=== PATIENT | female | born 1945 | race Caucasian/White ===

== ENCOUNTER 2017-05-22 16:22 | Inpatient (IN) | payer BC, OTHER ==
[~2017-05-22] VITALS: Ht 160 cm; Wt 82.0 kg
[~2017-05-22 16:22] MED LIST: ACET-1311 PO; ALUMSUS2 PO; AMB5 PO; ASPEC325 PO; CLC100 PO; CRS10 PO; LEVO-217 PO; LISI20TA3 PO; OXYSR10 PO; PANT40TA PO; PRD75 PO
[2017-05-22 20:00] VITALS: BP 162/70; PULSE 72; TEMP 36.7; O2SAT 93; Ht 160 cm; Wt 82.0 kg
[2017-05-22] MEDS ORDERED: NURSING VERBAL MED ORDER ONE ×2 (20:00→23:00)
[2017-05-22] MEDS ORDERED: LACTATED RINGER'S 1000ML 1,000 ML IV SCH (20:15)
[2017-05-22] MEDS ORDERED: AMLO-110 PO ×3 (20:20→20:31)
[2017-05-22] MEDS ORDERED: CHOL2000 PO (20:32)
[2017-05-22] MEDS ORDERED: ROSU5TAB PO (20:46)
[2017-05-22] MEDS ORDERED: APIX1TAB3 PO (20:47)
[2017-05-22] MEDS ORDERED: ASPI81TA28 PO (20:48)
[2017-05-22] MEDS ORDERED: ACET-1311 PO (20:49)
[2017-05-22] MEDS ORDERED: SITA50TA3 PO (20:50)
[2017-05-22] MEDS ORDERED: COEN100C11 PO (20:51)
[2017-05-22] MEDS ORDERED: LSN20 PO (20:54)
--- NOTE | 2017-05-22 21:29 | DIAGNOSTIC IMAGING REPORT ---
CHEST 2 VIEWS ROUTINE CLINICAL HISTORY: Preoperative chest COMPARISON STUDY: 09/28/2010 FINDINGS: The heart is enlarged. There is a left subclavian dual-chamber central venous pacemaker. There is no failure. There is no focal pulmonary consolidation. There are no pleural effusions. There is a left scapular deformity similar to the prior study.[ IMPRESSION: Cardiomegaly. No acute findings. Electronically signed by: Joaquín Huddleston M.D. 05/22/2017 9:28 PM Dictated Date/Time: 05/22/2017 9:27 PM
[2017-05-22 23:20] VITALS: BP 119/72; PULSE 70; TEMP 37.2; O2SAT 92
[2017-05-23] VITALS (8 sets, daily range): BP systolic 113–138; BP diastolic 67–84; PULSE 70–73; TEMP 36.4–37.1; O2SAT 91–96
[2017-05-23 07:46] LABS: HEMATOCRIT 34.4 % (37-47); HEMOGLOBIN 11.6 g/dL (12.0-16.0); MEAN CELL VOLUME 93.2 fL (80-100); MEAN CORPUSCULAR HEMOGLOBIN 31.4 pg (25-34); MEAN CORPUSCULAR HGB CONC 33.7 g/dl (32-36); PLATELET COUNT 146 K/uL (130-400); RED CELL DISTRIBUTION WIDTH SD 43.5 fL (36.4-46.3); WHITE BLOOD COUNT 11.03 K/uL (4.8-10.8)
--- NOTE | 2017-05-23 08:06 | HISTORY & PHYSICAL EXAMINATION ---
DATE OF ADMISSION: 05/23/2017 CHIEF COMPLAINT: Pain in the left knee. HISTORY OF PRESENT ILLNESS: The patient is a 71-year-old white female known to our practice who is status post bilateral total knee in [address] Solorio. The patient states that on she began feeling poorly and continued to feel poorly through the weekend. She states that soon her left knee began to swell and become painful and she apparently difficulty with ambulating on the left lower extremity. She states she did have fevers and chills off and on and was overall feeling poorly. She went to the [facility] and was seen by the staff there. The knee was aspirated and just recently nursing staff showed that reports from [facility] showing Gram stain of gram positive cocci. Dr. Solorio was contacted while she was in the Emergency Room and had her transferred to [facility] for further care. 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 PAST SURGICAL HISTORY: Bilateral total knee arthroplasty in 2010, pacemaker implantation, which she states was in 2008 and now states that she is due for a battery change very soon, above noted stent placement in the past due to her CAD, history of hysterectomy and cholecystectomy. FAMILY HISTORY: Noncontributory at this time. SOCIAL HISTORY: The patient is a nonsmoker who does not drink alcohol and is . MEDICATIONS: Tylenol 650 mg p.o. p.r.n., Maalox 15 mL p.o. q. 4 hours p.r.n., amlodipine 5 mg p.o. daily, Eliquis 10 mg p.o. b.i.d. which she states she has not taken since this past , aspirin 81 mg p.o. daily, vitamin D3 2000 units 1 cap p.o. daily, CoQ10 1 cap p.o. daily 100 mg, levothyroxine 0.05 mg p.o. daily, lisinopril 20 mg p.o. daily, Crestor 5 mg p.o. daily and Januvia 50 mg p.o. daily. ALLERGIES: SHRIMP AND XARELTO WHICH SHE STATES CAUSED A RASH OF SOME SORT OF ON HER ARMS. REVIEW OF SYSTEMS: Positive for recent fevers and chills. She denies any night sweats. No unexplained weight loss or weight gain. No increased cough or sputum production. She states that she is somewhat short winded with activity but states that her activity is minimal at best anyways. No recent chest pain or chest pressure. History of atrial fibrillation. No history of hemoptysis. No history of abdominal pain. No unusual nausea, vomiting or diarrhea, although she states that some of her medications do give her diarrhea off and on. No hematemesis, melena, hematochezia. No history of peptic ulcer disease. No recent hematuria, pyuria, dysuria or renal calculi. As noted above, the patient has had a hysterectomy in the past, history of CVA in approximately 2009 with some residual slight right-sided weakness. No history of migraine headaches or seizure disorder. PHYSICAL EXAMINATION: GENERAL: The patient is a well-developed, well-nourished white female who is alert and oriented x3 and in no acute distress, pleasant and cooperative. SKIN: Warm and dry. Turgor is good. HEENT: Head is normocephalic and atraumatic. There is no scleral icterus or injection. Nasal airway is patent. Oral mucosa is pink and moist. NECK: Supple. HEART: Regular rate and rhythm. LUNGS: Clear to auscultation without rales, rhonchi or wheezes. ABDOMEN: Soft, round and nontender. Bowel sounds are present x4. GENITALIA AND RECTAL: Not performed at this time. EXTREMITIES: On examination of her left knee, has moderate effusion compared to the right. The knee itself it is warm and hot to the touch compared to the right. She is tender on palpation over the knee at this time. She is able to fully extend the knee and she is able to bend the knee to approximately 60 degrees before the pain is too much for her to move. Otherwise left lower extremity is benign. Right lower extremity is benign at this time and has good range of motion. Two scars are noted from the knees from previous TKA. Calves are soft, nontender. Upper extremities are essentially within normal limits and have good range of motion bilaterally. Distal pulses are equal bilaterally of the upper and lower extremities. There is no gross motor or sensory deficit seen at this time. ASSESSMENT: Infected left total knee arthroplasty. PLAN: Dr. Solorio has been in to speak to the patient and after examining and receiving word from [facility] that she has gram positive cocci in the aspirate that was done there, plans will be for open irrigation and debridement and polyethylene bearing change today. The patient states that she has not taken her Eliquis since and that she is due for a battery change on her pacemaker. We will consult medicine service and if needed cardiology, but plan for the above noted irrigation and debridement today unless medicine service does not clear her.
[2017-05-23 08:15] LABS: CREATININE 0.86 mg/dl (0.60-1.20); POTASSIUM 3.8 mmol/L (3.5-5.1)
--- NOTE | 2017-05-23 09:45 | History & Physical Bridge Note ---
H&P Re-Evaluation Bridge Note: I have examined the patient, reviewed the History & Physical and in the interval since the performance of the History & Physical I have noted the following changes of clinical significance: No changes noted
--- NOTE | 2017-05-23 10:45 | DIAGNOSTIC IMAGING REPORT ---
LEFT KNEE 2 VIEWS HISTORY: r/o loosening of components COMPARISON: Left knee 05/22/2017. FINDINGS: There is no fracture or dislocation. Moderate knee effusion. Left total knee arthroplasty. The hardware is intact. No significant periprosthetic lucency to suggest loosening. IMPRESSION: 1. Moderate left knee effusion. 2. Left total knee arthroplasty. No significant periprosthetic lucency. Electronically signed by: Brennan Locke M.D. 05/23/2017 10:44 AM Dictated Date/Time: 05/23/2017 10:43 AM
[2017-05-23] MEDS ORDERED: HydrALAZINE HCL 20 MG/ML VIAL IV PRN (11:15)
--- NOTE | 2017-05-23 11:40 | Medical Consult ---
Consultation Date of Consultation: May 23, 2017. Attending Physician: Edgar Solorio D.O. Reason for Consultation: Infected left TKA with History of Present Illness 71-year-old female with history of diabetes mellitus, atrial fibrillation, coronary artery disease, hypothyroidism, and hyperlipidemia underwent bilateral knee replacements in 2010. She reports that she did well without knee problems until approximately 4-5 days prior to admission when she began to note fatigue, fever and chills, then progressively worsening pain and swelling of her left knee. She found it difficult to ambulate because of the pain. She was seen at [facility] emergency room where she had aspiration of the knee and fluid showed evidence of infection and Gram stain reportedly showed gram- positive cocci. She was transferred here for further management. She now is awaiting operative debridement and potential poly exchange later today. She denies any recent skin or soft tissue infections. Pain currently 3 to 4/10 in intensity. Past Medical/Surgical History PAST MEDICAL HISTORY: Atrial fibrillation, CAD with stent placement in the past, history of ablation, cerebrovascular event with right-sided weakness that has improved over time in 2009, hypothyroidism, hypercholesterolemia, diabetes mellitus type 2. PAST SURGICAL HISTORY: Bilateral total knee arthroplasty in 2010, pacemaker implantation, which she states was in 2008 and now states that she is due for a battery change very soon, above noted stent placement in the past due to her CAD, history of hysterectomy and cholecystectomy. Family History Noncontributory Social History Smoking Status: Never Smoker Allergies Coded Allergies: Shrimp (Unverified Allergy, Unknown, VOMIT, 09/28/10) Current Inpatient Medications Current Inpatient Medications Medications (Trade) Dose Ordered Sig/Demetrius Route Start Time Stop Time Status Last Admin Dose Admin Lactated Ringer's 1,000 ml @ 15 mls/hr Q24H IV 05/22/17 20:15 06/21/17 20:14 05/22/17 21:40 15 MLS/HR Insulin Aspart (novoLOG ASPART) SLIDING SCALE PARAMETER ACHS SC 05/23/17 12:00 06/22/17 11:59 UNV Hydralazine HCl (HydrALAZINE INJ) 10 mg Q4H PRN IV 05/23/17 11:15 06/22/17 11:14 UNV Levothyroxine Sodium (Synthroid Tab) 50 mcg DAILY PO 05/24/17 09:00 2/16/18 08:59 UNV Review of Systems All systems were reviewed and are negative except as per HPI Physical Exam Date Time Temp Pulse Resp B/P (MAP) Pulse Ox O2 Delivery O2 Flow Rate FiO2 05/23/17 07:43 37.0 72 18 126/81 (96) 93 Room Air 05/23/17 07:40 Room Air 05/22/17 23:35 Room Air 05/22/17 23:20 37.2 70 20 119/72 (88) 92 Room Air 05/22/17 20:00 36.7 72 22 162/70 (100) 93 Room Air 05/22/17 20:00 36.7 72 22 162/70 93 Room Air General Appearance: WD/WN, no apparent distress Head: normocephalic, atraumatic Eyes: normal inspection, EOMI, sclerae normal ENT: normal ENT inspection, hearing grossly normal, pharynx normal Neck: supple, no adenopathy, thyroid normal, trachea midline Respiratory/Chest: chest non-tender, lungs clear, normal breath sounds, no respiratory distress Cardiovascular: no gallop, no murmur, + irregularly irregular Abdomen/GI: normal bowel sounds, non tender, soft, no organomegaly Back: normal inspection, no CVA tenderness Extremities/Musculoskelatal: no calf tenderness, normal capillary refill, + pertinent finding (Left knee swollen, warm, and tender) Neurologic/Psych: alert, normal mood/affect, oriented x 3 Skin: normal color, warm/dry, no rash, + pertinent finding (Left knee with overlying ecchymosis) Lymphatic: no adenopathy Laboratory Results Last 24 Hours Test 05/22/17 20:15 05/22/17 21:12 05/23/17 00:21 05/23/17 05:52 Erythrocyte Sedimentation Rate 66 mm/hr C-Reactive Protein 20.80 mg/dl Bedside Glucose 180 mg/dl 210 mg/dl 174 mg/dl Test 05/23/17 07:02 05/23/17 07:31 White Blood Count 11.03 K/uL Red Blood Count 3.69 M/uL Hemoglobin 11.6 g/dL Hematocrit 34.4 % Mean Corpuscular Volume 93.2 fL Mean Corpuscular Hemoglobin 31.4 pg Mean Corpuscular Hemoglobin Concent 33.7 g/dl RDW Standard Deviation 43.5 fL RDW Coefficient of Variation 13.0 % Platelet Count 146 K/uL Mean Platelet Volume 10.0 fL Prothrombin Time 10.8 SECONDS Prothromb Time International Ratio 1.0 Sodium Level 138 mmol/L Potassium Level 3.8 mmol/L Chloride Level 106 mmol/L Carbon Dioxide Level 21 mmol/L Anion Gap 11.0 mmol/L Blood Urea Nitrogen 30 mg/dl Creatinine 0.86 mg/dl Est Creatinine Clear Calc Drug Dose 59.1 ml/min Estimated GFR () 77.7 Estimated GFR (Non- 67.0 BUN/Creatinine Ratio 34.4 Random Glucose 190 mg/dl Calcium Level 9.0 mg/dl Patient Name: JUAN J DURAN Unit Number: [id number] Dictated: 05/23/171042 Transcribed: 05/23/171042 [facility] Printed Date/Time: [~ rep prt dt]/[~ rep prt tm] [~ rep ct labl] - [~ rep ct ivnm] [facility] [address] [place] [address] Dictated: 05/23/171042 Transcribed: 05/23/171042 [facility] Printed Date/Time: [~ rep prt dt]/[~ rep prt tm] [~ rep ct labl] - [~ rep ct ivnm] [~ rep ct add3]] LEFT KNEE 2 VIEWS HISTORY: r/o loosening of components COMPARISON: Left knee 05/22/2017. FINDINGS: There is no fracture or dislocation. Moderate knee effusion. Left total knee arthroplasty. The hardware is intact. No significant periprosthetic lucency to suggest loosening. IMPRESSION: 1. Moderate left knee effusion. 2. Left total knee arthroplasty. No significant periprosthetic lucency. Electronically signed by: Brennan Locke M.D. 05/23/2017 10:44 AM Dictated Date/Time: 05/23/2017 10:43 AM The status of this report is Signed. Draft = Not yet reviewed or approved by Radiologist. Signed = Reviewed and approved by Radiologist. <AttendingPhy>Edgar Solorio D.O.</AttendingPhy> <FamilyPhy>Baldev Liu M.D.</FamilyPhy> <PrimaryPhy>Baldev Liu M.D.</PrimaryPhy> <UnitNumber> [id number]</UnitNumber> <VisitNumber>[id number]</VisitNumber> <PatientName> JUAN J DURAN</PatientName> <DateOfBirth>1945</DateOfBirth> <Location>W< /Location> <ServiceDate></ServiceDate> <MNE>ESINDI</MNE> <OrderingPhy>Deo Kyle E PAC</OrderingPhy> <OrderingPhyMNE>f rep ord dr lomax</OrderingPhyMNE> < DictatingPhyMNE>f rep dict dr lomax</DictatingPhyMNE> <CCListMNE>f rep ct monie</ CCListMNE> <AdmittingPhyMNE>f pt admit dr lomax</AdmittingPhyMNE> <AttendingPhyMNE >f pt attend dr lomax</AttendingPhyMNE> <ConsultingPhyMNE>f pt consult dr lomax</ConsultingPhyMNE> <FamilyPhyMNE>f pt fam dr lomax</FamilyPhyMNE> <OtherPhyMNE>f pt other dr lomax</OtherPhyMNE> < PrimaryPhyMNE>f pt prim care dr lomax</PrimaryPhyMNE> <ReferringPhyMNE>f pt referring dr lomax</ReferringPhyMNE> Assessment & Plan Late infection of left TKA with cultures positive for gram-positive cocci. Patient for OR later today for debridement and poly exchange, would treat with vancomycin pending further culture results. Will likely need 6 weeks of IV antibiotics followed by lifelong suppressive antibiotics. Will adjust therapy once culture results are available. Will follow.
[2017-05-23] MEDS ORDERED: DEXTROSE 50% 50 ML SYR IV PRN (12:30)
[2017-05-23] MEDS ORDERED: GLUCAGON FOR INJ 1 MG VIAL SQ PRN (12:30)
[2017-05-23] MEDS ORDERED: GLUCOSE 40% GEL 15 GM TUBE PO PRN (12:30)
[2017-05-23] MEDS ORDERED: GLUCOSE 10 TABS/TUBE PO PRN (12:30)
[2017-05-23] MEDS: INSULIN ASPART 100 UNITS/ML 3 ML PEN SC SCH ×3 (13:05→21:21)
[2017-05-23] MEDS ORDERED: MIDAZOLAM HCL 1 MG/ML 2ML VIAL ONE (13:48)
[2017-05-23] MEDS ORDERED: FENTANYL CITRATE INJ 50 MCG/1 ML 2 ML VIAL ONE ×4 (13:49→15:51)
--- NOTE | 2017-05-23 13:51 | Medical Student: [facility] ---
Med Student History & Physical Date & Time of Service: May 23, 2017 at 13:21 Chief Complaint: Left Knee Effusion, Possible Sx Primary Care Physician: Baldev Liu M.D. History of Present Illness Source: patient 71 year old female with onset of fever/chills and left knee pain 6 days ago and worsening over the weekend s/p bilateral knee [place] [address] Solorio. Ambulation became increasing difficult secondary to pain and swelling. She presented to the [facility] ER and the joint fluid came back positive for gram positive cocci. She was transported to [facility] at the request of Dr. Solorio. He requested medical clearance for surgical irrigation and debridement. The patient denies any recent injury, infection, or sickness and there is no nidus for infection at this time. She has an extensive medical history including previous SC with stent and pacemaker in 1999, atrial fibrillation, CAD, type 2 DM, hypothyroidism, and CVA in 2009 resulting in right -sided weakness. Surgical history includes cholecystectomy an hysterectomy. She does not smoke, drink, and lives with her . Notably, she has an allergy with rash from Xarelto. Family History Father: no pertinent history Mother: no pertinent history Social History Smoking Status: Never Smoker Alcohol Use: none Drug Use: none Marital Status: Housing status: lives with family Immunizations History of Influenza Vaccine: Yes History of Tetanus Vaccine?: No History of Pneumococcal: Yes History of Hepatitis B Vaccine: No Allergies Coded Allergies: Shrimp (Unverified Allergy, Unknown, VOMIT, 09/28/10) Medications Acetaminophen (Tylenol), 650 MG PO for Pain Aluminum/Magnesium/Simeth (Maalox Max Susp), 15 ML PO Q4H PRN Amlodipine (Norvasc), 5 MG PO DAILY Apixaban (Eliquis), 10 MG PO BID Aspirin (Aspirin Ec), 81 MG PO DAILY Cholecalciferol (Vitamin D3), 1 CAP PO DAILY Coenzyme Q10 (Ubidecarenone) (Coq-10), 1 CAP PO DAILY Levothyroxine (Levothroid), 0.05 MG PO DAILY Lisinopril (Prinivil), 20 MG PO DAILY Lisinopril (Lisinopril), 1 TAB PO DAILY Rosuvastatin Calcium (Crestor *), 5 MG PO 3XWK Rosuvastatin Calcium (Crestor), 5 MG PO 4XWK Sitagliptin (Januvia), 50 MG PO DAILY Review of Systems Constitutional: + fever, + chills Respiratory: No cough, No shortness of breath Cardiovascular: No chest pain Abdomen: No pain, No nausea, No vomiting, No diarrhea Musculoskeletal: + joint pain, + swelling, No calf pain Genitourinary - Female: No dysuria Endocrine: No fatigue Hematologic / Lymphatic: No abnormal bleeding/bruising Integumentary: No rash Allergic / Immunologic: No frequent infections Physical Exam Vital Signs (24 Hours) Date Time Temp Pulse Resp B/P (MAP) Pulse Ox O2 Delivery O2 Flow Rate FiO2 05/23/17 13:03 37.1 73 16 113/67 (82) 91 Room Air 05/23/17 07:43 37.0 72 18 126/81 (96) 93 Room Air 05/23/17 07:40 Room Air 05/22/17 23:35 Room Air 05/22/17 23:20 37.2 70 20 119/72 (88) 92 Room Air 05/22/17 20:00 36.7 72 22 162/70 (100) 93 Room Air 05/22/17 20:00 36.7 72 22 162/70 93 Room Air General Appearance: WD/WN, no apparent distress Head: normocephalic, atraumatic Eyes: EOMI ENT: hearing grossly normal Neck: supple, no adenopathy Respiratory/Chest: lungs clear, normal breath sounds, no respiratory distress, no accessory muscle use Cardiovascular: regular rate, rhythm, no JVD, no murmur Abdomen/GI: normal bowel sounds, non tender, soft Extremities/Musculoskelatal: normal capillary refill, + swelling, + pertinent finding (knee effusion, unable to flex past 50-60 degrees, able to extand, warm) Neurologic/Psych: alert, normal mood/affect, oriented x 3 Skin: normal color, warm/dry, no rash Diagnostics Laboratory Results Results Past 24 Hours Test 05/22/17 20:15 05/22/17 21:12 05/23/17 00:21 05/23/17 05:52 Range/Units Erythrocyte Sedimentation Rate 66 0-21 mm/hr C-Reactive Protein 20.80 0-0.29 mg/dl Bedside Glucose 180 210 174 70-90 mg/dl Test 05/23/17 07:31 05/23/17 12:17 Range/Units White Blood Count 11.03 4.8-10.8 K/uL Red Blood Count 3.69 4.2-5.4 M/uL Hemoglobin 11.6 12.0-16.0 g/dL Hematocrit 34.4 37-47 % Mean Corpuscular Volume 93.2 80-100 fL Mean Corpuscular Hemoglobin 31.4 25-34 pg Mean Corpuscular Hemoglobin Concent 33.7 32-36 g/dl RDW Standard Deviation 43.5 36.4-46.3 fL RDW Coefficient of Variation 13.0 11.5-14.5 % Platelet Count 146 130-400 K/uL Mean Platelet Volume 10.0 7.4-10.4 fL Prothrombin Time 10.8 9.0-12.0 SECONDS Prothromb Time International Ratio 1.0 0.9-1.1 Sodium Level 138 136-145 mmol/L Potassium Level 3.8 3.5-5.1 mmol/L Chloride Level 106 98-107 mmol/L Carbon Dioxide Level 21 21-32 mmol/L Anion Gap 11.0 3-11 mmol/L Blood Urea Nitrogen 30 7-18 mg/dl Creatinine 0.86 0.60-1.20 mg/dl Est Creatinine Clear Calc Drug Dose 59.1 ml/min Estimated GFR () 77.7 Estimated GFR (Non- 67.0 BUN/Creatinine Ratio 34.4 10-20 Random Glucose 190 70-99 mg/dl Calcium Level 9.0 8.5-10.1 mg/dl Urine Color DK YELLOW Urine Appearance CLEAR CLEAR Urine pH 5.0 4.5-7.5 Urine Specific [place] 1.024 1.000-1.030 Urine Protein 2+ NEG Urine Glucose (UA) NEG NEG Urine Ketones NEG NEG Urine Occult Blood 3+ NEG Urine Nitrite NEG NEG Urine Bilirubin NEG NEG Urine Urobilinogen POS NEG Urine Leukocyte Esterase SMALL NEG Urine WBC (Auto) 5-10 0-5 /hpf Urine RBC (Auto) 5-10 0-4 /hpf Urine Hyaline Casts (Auto) 1-5 0-5 /lpf Urine Epithelial Cells (Auto) >30 0-5 /lpf Urine Bacteria (Auto) NEG NEG Diagnostic Radiology CXR IMPRESSION: Cardiomegaly. No acute findings KNEE X-RAY IMPRESSION: 1. Moderate left knee effusion. 2. Left total knee arthroplasty. No significant periprosthetic lucency. EKG Vent. rate 70 BPM CO interval * ms QRS duration 180 ms QT/QTc 460/496 ms P-R-T axes * -65 102 Ventricular-paced rhythm Abnormal ECG When compared with ECG of 28-SEP-2010 12:14, No significant change was found No change from prior EKG Impression Assessment and Plan 71 y/o F with left sided septic knee joint s/p arthroplasty in 2010 here fore irrigation and debridement 1. Septic joint -Surgery today, patient is medically cleared. -Ja's revised cardiac risk index for pre-op risk is 6.6% major cardiac event.You's risk is less than 1%. -ID input regarding antibiotic choice and duration -Vanco today to cover MRSA, culture sensitivities pending, gram + cocci 2. Heme -Pt stopped apixaban last , hold today -Start anticoagulation 24 hours after surgery -Hold ASA today, restart 81mg 24 hours after surgery 3. DM -Hold Januvia today -Start sliding scale insulin 4. HTN -Hold lisinopril today and tomorrow -Start post op day 2 at 20 mg tab PO daily -Hold amlodipine today -Hydralazine 10mg q4h PRN 5. HLD -Hold rosuvastatin today, begin 5mg tab PO 4xwk tomorrow 6. Hypothyroidism -Levothyroxine 0.5mg PO daily 7. DVT ppx -Contraindicated today due to surgery 8. Disposition -Med/surg following ortho surg FULL CODE Level of Care Med/Surg Advanced Directives Existing Living Will: Yes Existing Power of Pharmacy Picking Tech: Yes () Resuscitation Status FULL RESUSCITATION DVT Prophylaxis Prophylaxis Contraindication: Surgical contraindication
[2017-05-23] MEDS ORDERED: VANCOMYCIN CONSULT ACTIVE PRN (14:00)
[2017-05-23] MEDS ORDERED: LIDOCAINE HCL 2% 2 ML VIAL (20MG/ML) ONE (14:15)
[2017-05-23] MEDS ORDERED: ONDANSETRON INJ 2 MG/ML 2 ML VIAL ONE (14:15)
[2017-05-23] MEDS ORDERED: PROPOFOL IV EMULSION 10 MG/ML 20 ML VIAL IV ONE (14:15)
--- NOTE | 2017-05-23 14:34 | PROGRESS NOTE ---
DATE: 05/23/2017 DATE: 05/23/2017 HISTORY OF PRESENT ILLNESS: The patient is a 71-year-old white female who was transferred from the Emergency Room in [place] last evening who presents with a septic left total knee arthroplasty. The knee replacement surgery had been performed 7 years prior. The patient had aspiration of her knee done in [place] which revealed there to be evidence of gram positive cocci, cloudy fluid, greater than 10,000 white cells. She has sed rate 75, increased C-reactive protein, white count 14,000, was scheduled for an I&D poly change today. Upon evaluation of her previous x-rays and operative report the Journey total knee arthroplasty that she has currently in place was a Journey 1 variety. The polyethylene to change the implants out at the time of I&D the type that are available at the hospital today is not available, there is only a Journey type 2. Therefore, we are going to push the patient's surgery until tomorrow. The patient is afebrile, nonseptic and it is felt that it was better for a 1 time surgery with the right poly tomorrow. The patient will be rescheduled for I&D poly change tomorrow.
--- NOTE | 2017-05-23 14:40 | Pharmacy Progress Note ---
Pharmacy Antibiotic Consult Date of Service: May 23, 2017. Pharmacy Dosing Scope Pharmacy is consulted to initiate vancomycin IV dosing therapy, order appropriate labs and adjust drug dose/frequency. Subjective The patient is a 71 year old female admitted on May 22, 2017 at 19:35. Objective Height (Feet): 5 Height (Inches): 3.00 Weight (Kilograms): 82.000 Lab Results (24hrs): Test 05/22/17 20:15 05/23/17 05:52 05/23/17 07:31 05/23/17 12:17 Erythrocyte Sedimentation Rate 66 mm/hr (0-21) C-Reactive Protein 20.80 mg/dl (0-0.29) Bedside Glucose 174 mg/dl (70-90) White Blood Count 11.03 K/uL (4.8-10.8) Red Blood Count 3.69 M/uL (4.2-5.4) Hemoglobin 11.6 g/dL (12.0-16.0) Hematocrit 34.4 % (37-47) Mean Corpuscular Volume 93.2 fL (80-100) Mean Corpuscular Hemoglobin 31.4 pg (25-34) Mean Corpuscular Hemoglobin Concent 33.7 g/dl (32-36) RDW Standard Deviation 43.5 fL (36.4-46.3) RDW Coefficient of Variation 13.0 % (11.5-14.5) Platelet Count 146 K/uL (130-400) Mean Platelet Volume 10.0 fL (7.4-10.4) Prothrombin Time 10.8 SECONDS (9.0-12.0) Prothromb Time International Ratio 1.0 (0.9-1.1) Sodium Level 138 mmol/L (136-145) Potassium Level 3.8 mmol/L (3.5-5.1) Chloride Level 106 mmol/L (98-107) Carbon Dioxide Level 21 mmol/L (21-32) Anion Gap 11.0 mmol/L (3-11) Blood Urea Nitrogen 30 mg/dl (7-18) Creatinine 0.86 mg/dl (0.60-1.20) Est Creatinine Clear Calc Drug Dose 59.1 ml/min Estimated GFR () 77.7 Estimated GFR (Non- 67.0 BUN/Creatinine Ratio 34.4 (10-20) Random Glucose 190 mg/dl (70-99) Calcium Level 9.0 mg/dl (8.5-10.1) Urine Color DK YELLOW Urine Appearance CLEAR (CLEAR) Urine pH 5.0 (4.5-7.5) Urine Specific [place] 1.024 (1.000-1.030) Urine Protein 2+ (NEG) Urine Glucose (UA) NEG (NEG) Urine Ketones NEG (NEG) Urine Occult Blood 3+ (NEG) Urine Nitrite NEG (NEG) Urine Bilirubin NEG (NEG) Urine Urobilinogen POS (NEG) Urine Leukocyte Esterase SMALL (NEG) Urine WBC (Auto) 5-10 /hpf (0-5) Urine RBC (Auto) 5-10 /hpf (0-4) Urine Hyaline Casts (Auto) 1-5 /lpf (0-5) Urine Epithelial Cells (Auto) >30 /lpf (0-5) Urine Bacteria (Auto) NEG (NEG) Test 05/23/17 13:21 Bedside Glucose 180 mg/dl (70-90) Recent Pertinent Medications Received 1500 mg dose of vancomycin at [facility] at 1600 on 05/22 Assessment & Plan Assessment: 71 yo female with history of bilateral total knee arthroplasty in 2010 presented to outside hospital with knee pain. Aspirate and Blood cultures positive for GPC. Patient transferred to [facility] for further care- arrived via private vehicle this AM. Patient received one dose of Vancomycin 1500 mg x 1 @ 1600 05/22 Plan: Patient received dose at outside hospital almost 23 hours ago~ estimate levels at 8 or lower. Loading dose: 1750 mg (21mg /kg) IV X 1 dose then: 1000 mg IV every q14 hours. PK: SCr 0.86, CrCl 59.1, T1/2 ~13 hours, ke 0.053 Goal trough level estimate: between 15-20 mcg/mL. Trough ordered for 05/25 @ 2029. Pharmacy will continue to follow and will adjust dose/frequency as necessary. Thank you
[2017-05-23] MEDS ORDERED: VANCOMYCIN INJ 1,750 MG in SODIUM CHLORIDE 0.9% 500ML 500 ML IV ONE (14:45)
[2017-05-23] MEDS ORDERED: POVIDONE-IODINE OP SOLN 30 ML BTL ONE (14:47)
[2017-05-23] MEDS ORDERED: BACITRACIN 50000 UNIT VIAL ONE ×2 (14:49→15:16)
[2017-05-23] MEDS ORDERED: ONDANSETRON INJ 2 MG/ML 2 ML VIAL IV PRN ×2 (15:00→16:15)
[2017-05-23] MEDS ORDERED: HYDROmorphone INJ 2 MG/ML SYR/VIAL IV PRN (15:00)
[2017-05-23] MEDS ORDERED: ATROPINE SULFATE 0.1 MG/ML 5ML SYR IV PRN (15:00)
[2017-05-23] MEDS ORDERED: PHENYLEPHRINE 100MCG/ML 5ML SYR ONE (16:06)
--- NOTE | 2017-05-23 16:07 | [facility] Operative Report ---
Operative Report Operative Date May 23, 2017. Pre-Operative Diagnosis Left knee infection Post-Operative Diagnosis same as preoperative Procedure(s) Performed Left Knee Incision and Drainage, Left Knee Poly exchange to a size 3 for by [address] Edgar Solorio Textile Conservator Surgeon(s) Deo Kyle PA-C Estimated Blood Loss 5mL Findings Seropurulent fluid within the knee joint exam consistent with infected acutely infected total knee replacement that was placed initially 7 years prior Specimens Microbiology: 1. Left Knee joint fluid for gram stain, culture and sensitivity, anaerobic, aerobic bacteria. Fresh: A. Left Knee Explanted Hardware Complication(s) None Disposition Recovery Room / PACU Indications Patient presents with a transfer from [facility] with a gram-positive aspirate of the knee became acutely swollen 1 day prior a patient had been feeling sick prior to this and presents after having seated out a left knee replacement and initial knee implant was placed in 2010 she's been asymptomatic and has actually been seen in 3 years in the office 100 and no complaints of pain Description of Procedure After proper prepping and draping the left lower extremity incision made in the region previous incision dissection carried down through the subcutaneous tissues to the region of the extensor mechanism a medial parapatellar incision was made seropurulent fluid was drained from knee cultures were taken and sent for Gram stain and culture a thorough and complete synovectomy medial lateral gutters was performed all thickened synovium was removed the infection appeared to be an acute infection as there was not significant signs of anything compartment chronic in nature knowns of loosening of femur or tibia were noted the poly-was removed Lausier irrigated with 9 L of sterile saline solution impregnated with bacitracin synovectomies having been completely performed a versa jet was used to remove any other thickened synovium femoral surfaces and joint gloves were changed dressings and drapes were changed socially poly-was upsized to a size 10 3 for by 10 the wound was once again irrigated with sterile saline solution the medial proptosis and closed #1 Vicryl subcutaneous screws 2 Vicryl skin was closed skin clips sterile compressive dressing was placed patient states recovery in stable condition operative report dictated by Osmin HENRIQUEZ was necessary for prepping draping retraction wound closure defect is subcutaneous and skin was necessary for the case I attest to the content of the Intraoperative Record and any orders documented therein. Any exceptions are noted below.
[2017-05-23] MEDS ORDERED: ZOLPIDEM TARTRATE 5 MG TAB PO PRN (16:15)
[2017-05-23] MEDS ORDERED: ALUMINUM/MAGNESIUM/SIMETH (MAALOX MAX) 30 ML UDC PO PRN (16:15)
[2017-05-23] MEDS ORDERED: BISACODYL 10 MG SUPP PR PRN (16:15)
[2017-05-23] MEDS ORDERED: DiphenhydrAMINE HCL 50 MG/ML VIAL IV PRN (16:15)
[2017-05-23] MEDS ORDERED: MAGNESIUM HYDROXIDE SUSP 30 ML UDC PO PRN (16:15)
[2017-05-23] MEDS ORDERED: SOD PHOSPHATE/SOD BIPHOSPHATE ENEMA 132 ML BTL PR PRN (16:15)
[2017-05-23] MEDS ORDERED: METOCLOPRAMIDE HCL INJ 5 MG/ML 2 ML VIAL IV PRN (16:15)
[2017-05-23] MEDS ORDERED: TRAMADOL HCL 50 MG TAB PO PRN (16:15)
[2017-05-23] MEDS ORDERED: HYDROmorphone INJ 1 MG/ML SYR ONE (16:42)
[2017-05-23] MEDS ORDERED: MoRPHine SULFATE 2 MG/ML CARP IV PRN (16:45)
[2017-05-23] MEDS ORDERED: MoRPHine SULFATE 4 MG/ML 1 ML CARP\\VIAL IV PRN (16:45)
[2017-05-23] MEDS: SODIUM CHLORIDE 0.9% 1000ML 1,000 ML IV SCH (16:45)
--- NOTE | 2017-05-23 17:21 | DIAGNOSTIC IMAGING REPORT ---
L KNEE 1 OR 2 VIEWS ROUTINE CLINICAL HISTORY: AP/LATERAL IN PACU LEFT KNEE COMPARISON: Same examination 10:23 AM DISCUSSION: Anatomic alignment status post total left knee arthroplasty. Good contact between prosthetic and underlying bone. Expected soft tissue postoperative change. Very small joint effusion. IMPRESSION: Anatomic alignment status post total left knee arthroplasty. The above report was generated using voice recognition software. It may contain grammatical, syntax or spelling errors. Electronically signed by: Vishnu Anaya M.D. 05/23/2017 5:20 PM Dictated Date/Time: 05/23/2017 5:18 PM
--- NOTE | 2017-05-23 17:22 | Anesthesiology Progress Note ---
Anesthesia Post Op Note Date & Time May 23, 2017 at 17:22 Vital Signs Pain Intensity: 5 Vital Signs Past 12 Hours Date Time Temp Pulse Resp B/P (MAP) Pulse Ox O2 Delivery O2 Flow Rate FiO2 05/23/17 17:15 37.1 70 14 139/73 93 Nasal Cannula 4 05/23/17 17:05 70 18 138/77 92 Nasal Cannula 4 05/23/17 16:55 70 16 145/75 93 Oxymask 8 05/23/17 16:45 70 18 144/80 94 Oxymask 12 05/23/17 16:36 37.5 73 12 148/74 94 Oxymask 15 05/23/17 13:03 37.1 73 16 113/67 (82) 91 Room Air 05/23/17 07:43 37.0 72 18 126/81 (96) 93 Room Air 05/23/17 07:40 Room Air Notes Mental Status: alert / awake / arousable, participated in evaluation Pt Amnestic to Procedure: Yes Nausea / Vomiting: adequately controlled Pain: adequately controlled Airway Patency, RR, SpO2: stable & adequate BP & HR: stable & adequate Hydration State: stable & adequate Anesthetic Complications: no major complications apparent
[2017-05-23] MEDS: FERROUS GLUCONATE 324 MG TAB PO SCH (17:45)
[2017-05-23] MEDS: ACETAMINOPHEN 500 MG TAB PO SCH ×2 (17:56→22:30)
[2017-05-23] MEDS ORDERED: CEFAZOLIN IV 1,000 MG in SYRINGE 0 ML IV SCH (18:00)
--- NOTE | 2017-05-23 19:48 | Medical Consult ---
History General Date of Service: May 23, 2017. Stated Complaint: Left Knee Effusion, Possible Sx HPI The patient is a 71 year old female who presents to [facility] with complaints of Left Knee Effusion, Possible Sx. The patient's primary care provider is Baldev Liu M.D.. This pt is admitted to orthopedic service after developing outpt fevers and was found to have a knee effusion with previous total knee replacement and cultures suggesting gram positives. She has pain and is not able to flex her knee, she has a known history of afib controlled but pacemaker. she has had no chest pain heartfailure or anginal symptoms . Review of Systems Constitutional: reports: chills, fever, malaise, weakness Cardiovascular: denies: chest pain, chest pressure, chest tightness, diaphoresis Respiratory: denies: cough, orthopnea, stridor, wheezing Gastrointestinal: denies: abdominal pain, constipation, diarrhea Genitourinary - Female: denies: dysuria, hematuria Musculoskeletal: reports: arthralgias, joint pain, joint swelling, denies: neck pain, back pain Integumentary: denies: rash, redness Neurologic: denies: headache, dizziness Psychiatric: denies: anxiety, depression Endocrine: denies: cold intolerance Hematologic / Lymphatic: denies: abnormal clotting, adenopathy Past Medical History Past Medical History: A Fib, coronary artery disease, diabetes, high cholesterol, hypothyroidism Past Surgical History: cardiac ablation, cholecystectomy, hysterectomy, pacemaker (ablation), other (cardiac stent) Family History Parent: Diabetes, Heart Disease, Hypertension Social History Smoking Status: Never Smoker Marital status: Housing status: lives with family Immunizations History of Influenza Vaccine: Yes History of Tetanus Vaccine?: No History of Pneumococcal: Yes History of Hepatitis B Vaccine: No Allergies Coded Allergies: Shrimp (Unverified Allergy, Unknown, VOMIT, 09/28/10) Current Medications Reported Home Medications Medications Dose Route/Sig Max Daily Dose Days Date Category Lisinopril 20 Mg Tab 1 Tab PO DAILY 05/22/17 Reported Coq-10 (Coenzyme Q10 (Ubidecarenone)) 100 Mg Cap 1 Cap PO DAILY 05/22/17 Reported Januvia (Sitagliptin) 50 Mg Tab 50 Mg PO DAILY 05/22/17 Reported Tylenol (Acetaminophen) 325 Mg Tab 650 Mg PO PRN 05/22/17 Reported Aspirin Ec (Aspirin) 81 Mg Tab 81 Mg PO DAILY 05/22/17 Reported Eliquis (Apixaban) 5 Mg Tab 10 Mg PO BID 7 05/22/17 Reported Crestor (Rosuvastatin Calcium) 5 Mg Tab 5 Mg PO 4XWK 05/22/17 Reported Vitamin D3 (Cholecalciferol) 2,000 Unit Cap 1 Cap PO DAILY 30 05/22/17 Reported Norvasc (Amlodipine Besylate) 5 Mg Tab 5 Mg PO DAILY 05/22/17 Reported Maalox Max Susp (Al Hydrox/Mg Hydrox/Simethicone) Susp 15 Ml PO Q4H PRN 11/07/10 Rx Crestor * (Rosuvastatin Calcium) 5 Mg Tab 5 Mg PO 3XWK 09/28/10 Reported Prinivil (Lisinopril) 20 Mg Tab 20 Mg PO DAILY 09/28/10 Reported Levothroid (Levothyroxine Sodium) 0.05 Mg Tab 0.05 Mg PO DAILY 09/28/10 Reported Physical Physical Exam Vital Signs: Date Time Temp Pulse Resp B/P (MAP) Pulse Ox O2 Delivery O2 Flow Rate FiO2 05/23/17 18:59 70 16 138/73 (94) 93 Nasal Cannula 4.0 05/23/17 18:10 36.7 70 20 131/70 (90) 92 Nasal Cannula 4.0 05/23/17 17:40 Nasal Cannula 4.0 05/23/17 17:40 Nasal Cannula 4.0 05/23/17 17:40 36.8 70 15 128/69 (88) 92 Nasal Cannula 4.0 05/23/17 17:15 37.1 70 14 139/73 93 Nasal Cannula 4 05/23/17 17:05 70 18 138/77 92 Nasal Cannula 4 05/23/17 16:55 70 16 145/75 93 Oxymask 8 05/23/17 16:45 70 18 144/80 94 Oxymask 12 05/23/17 16:36 37.5 73 12 148/74 94 Oxymask 15 05/23/17 13:03 37.1 73 16 113/67 (82) 91 Room Air 05/23/17 07:43 37.0 72 18 126/81 (96) 93 Room Air 05/23/17 07:40 Room Air 05/22/17 23:35 Room Air 05/22/17 23:20 37.2 70 20 119/72 (88) 92 Room Air 05/22/17 20:00 36.7 72 22 162/70 (100) 93 Room Air 05/22/17 20:00 36.7 72 22 162/70 93 Room Air General Appearance: WELL-APPEARING, uncomfortable Head: NORMOCEPHALIC, ATRAUMATIC Eyes: PERRLA, EOMI Neck: SUPPLE, NO THYROMEGALY Respiratory: BREATH SOUNDS NORMAL, CLEAR TO AUSCULTATION, CLEAR TO PERCUSSION Cardiovasular: irregular rate, systolic murmur Abdomen: NON TENDER, NORMAL BOWEL SOUNDS, NO REBOUND Back: NORMAL INSPECTION, NO MIDLINE TENDERNESS, NO CVA TENDERNESS Upper Extremities: NO EDEMA, NO DEFORMITY Lower Extremities: abnormal exam, edema Pulses: radial (R) (1+), radial (L) (1+), dorsalis pedis (R) (1+), dorsalis pedis (L) (1+) Neuro: ALERT, ORIENTED x 3 Psychiatric: NORMAL AFFECT, NO SUICIDAL IDEATION Diagnostics Labs Results Past 24 Hours Test 05/22/17 20:15 05/22/17 21:12 05/23/17 00:21 05/23/17 05:52 Range/Units Erythrocyte Sedimentation Rate 66 0-21 mm/hr C-Reactive Protein 20.80 0-0.29 mg/dl Bedside Glucose 180 210 174 70-90 mg/dl Test 05/23/17 07:31 05/23/17 12:17 05/23/17 13:21 05/23/17 16:39 Range/Units White Blood Count 11.03 4.8-10.8 K/uL Red Blood Count 3.69 4.2-5.4 M/uL Hemoglobin 11.6 12.0-16.0 g/dL Hematocrit 34.4 37-47 % Mean Corpuscular Volume 93.2 80-100 fL Mean Corpuscular Hemoglobin 31.4 25-34 pg Mean Corpuscular Hemoglobin Concent 33.7 32-36 g/dl RDW Standard Deviation 43.5 36.4-46.3 fL RDW Coefficient of Variation 13.0 11.5-14.5 % Platelet Count 146 130-400 K/uL Mean Platelet Volume 10.0 7.4-10.4 fL Prothrombin Time 10.8 9.0-12.0 SECONDS Prothromb Time International Ratio 1.0 0.9-1.1 Sodium Level 138 136-145 mmol/L Potassium Level 3.8 3.5-5.1 mmol/L Chloride Level 106 98-107 mmol/L Carbon Dioxide Level 21 21-32 mmol/L Anion Gap 11.0 3-11 mmol/L Blood Urea Nitrogen 30 7-18 mg/dl Creatinine 0.86 0.60-1.20 mg/dl Est Creatinine Clear Calc Drug Dose 59.1 ml/min Estimated GFR () 77.7 Estimated GFR (Non- 67.0 BUN/Creatinine Ratio 34.4 10-20 Random Glucose 190 70-99 mg/dl Calcium Level 9.0 8.5-10.1 mg/dl Urine Color DK YELLOW Urine Appearance CLEAR CLEAR Urine pH 5.0 4.5-7.5 Urine Specific [place] 1.024 1.000-1.030 Urine Protein 2+ NEG Urine Glucose (UA) NEG NEG Urine Ketones NEG NEG Urine Occult Blood 3+ NEG Urine Nitrite NEG NEG Urine Bilirubin NEG NEG Urine Urobilinogen POS NEG Urine Leukocyte Esterase SMALL NEG Urine WBC (Auto) 5-10 0-5 /hpf Urine RBC (Auto) 5-10 0-4 /hpf Urine Hyaline Casts (Auto) 1-5 0-5 /lpf Urine Epithelial Cells (Auto) >30 0-5 /lpf Urine Bacteria (Auto) NEG NEG Bedside Glucose 180 168 70-90 mg/dl Test 05/23/17 17:43 Range/Units Bedside Glucose 226 70-90 mg/dl Microbiology Results 05/23/17 Gram Stain, Received Pending 05/23/17 Bacterial Culture, Received Pending Radiology Interpretation: CXR NORMAL EKG Interpretation: other (v paced rhythm) Impression Assessment and Plan 71 F with prosthetic joint infection without apparent portal of entry of infection or nidus, dose also have ppm Taken to the or for I and D and possible poly exchange ID started on vancomycin and pending culture and sensitivity diabetes. will hold januvia and have on ssi htn will hold lisinopril continue norvasc, use hydralazine and expect restart lisinipril on 05/25 cardiovascular risk, consider restarting aspirin in 24 hours, may hold crestor until after discharge DVT prevention per surgical preference consider heparin or lovenox sc Admit To Med/Surg Code Status Level 1 - Full Code DVT Prophylaxis unfractionated heparin SQ
[2017-05-23] MEDS: ASPIRIN 325 MG ECTAB PO SCH (21:16)
[2017-05-23] MEDS: SENNA 8.6 MG TAB PO SCH (21:16)
[2017-05-23] MEDS: OXYCODONE HCL IR 5 MG TAB (IMMEDIATE RELEASE) PO PRN (21:17)
[2017-05-23] MEDS: DOCUSATE SODIUM 100 MG CAP PO SCH (21:17)
[2017-05-24] MEDS: OXYCODONE HCL IR 5 MG TAB (IMMEDIATE RELEASE) PO PRN (01:37)
[2017-05-24] MEDS: VANCOMYCIN INJ 1,000 MG in SODIUM CHLORIDE 0.9% 250ML 250 ML IV SCH ×2 (03:07→17:33)
[2017-05-24] MEDS: SODIUM CHLORIDE 0.9% 1000ML 1,000 ML IV SCH ×2 (03:07→13:21)
[2017-05-24 03:54] VITALS: BP 140/74; PULSE 71; TEMP 36.5; O2SAT 94
[2017-05-24] MEDS: LEVOTHYROXINE 50 MCG TAB PO SCH (05:35)
[2017-05-24] MEDS: ACETAMINOPHEN 500 MG TAB PO SCH ×3 (05:35→21:13)
[2017-05-24 08:03] VITALS: BP 133/67; PULSE 74; TEMP 36.7; O2SAT 96
--- NOTE | 2017-05-24 08:29 | Anesthesiology Progress Note ---
Anesthesia Post Op Note Date & Time May 24, 2017 at 08:28 Vital Signs Pain Intensity: 8.0 Vital Signs Past 12 Hours Date Time Temp Pulse Resp B/P (MAP) Pulse Ox O2 Delivery O2 Flow Rate FiO2 05/24/17 08:03 36.7 74 18 133/67 (89) 96 Room Air 05/24/17 03:54 36.5 71 18 140/74 (96) 94 Room Air 05/23/17 23:20 Nasal Cannula 1.0 05/23/17 23:05 36.4 70 16 122/76 (91) 96 Nasal Cannula 4.0 05/23/17 20:42 72 16 121/68 (85) Notes Mental Status: alert / awake / arousable, participated in evaluation Pt Amnestic to Procedure: Yes Nausea / Vomiting: adequately controlled Pain: adequately controlled Airway Patency, RR, SpO2: stable & adequate BP & HR: stable & adequate Hydration State: stable & adequate Anesthetic Complications: no major complications apparent
[2017-05-24] MEDS: FERROUS GLUCONATE 324 MG TAB PO SCH ×3 (08:49→18:04)
[2017-05-24] MEDS: ASPIRIN 325 MG ECTAB PO SCH ×2 (08:49→21:12)
[2017-05-24] MEDS: MULTIVITAMIN TAB PO SCH (08:49)
[2017-05-24] MEDS: DOCUSATE SODIUM 100 MG CAP PO SCH ×2 (08:50→21:12)
[2017-05-24] MEDS: INSULIN ASPART 100 UNITS/ML 3 ML PEN SC SCH ×4 (08:55→21:19)
[2017-05-24 09:14] LABS: HEMATOCRIT 33.4 % (37-47); HEMOGLOBIN 11.5 g/dL (12.0-16.0); MEAN CELL VOLUME 93.3 fL (80-100); MEAN CORPUSCULAR HEMOGLOBIN 32.1 pg (25-34); MEAN CORPUSCULAR HGB CONC 34.4 g/dl (32-36); MEAN PLATELET VOLUME 10.4 fL (7.4-10.4); PLATELET COUNT 179 K/uL (130-400); RED CELL DISTRIBUTION WIDTH CV 12.8 % (11.5-14.5); RED CELL DISTRIBUTION WIDTH SD 43.3 fL (36.4-46.3); WHITE BLOOD COUNT 12.35 K/uL (4.8-10.8)
[2017-05-24 09:41] LABS: CALCIUM 8.7 mg/dl (8.5-10.1); CREATININE 0.89 mg/dl (0.60-1.20); POTASSIUM 4.1 mmol/L (3.5-5.1)
--- NOTE | 2017-05-24 10:05 | Medical Student: [facility] ---
Med Student Progress Note Date of Service May 24, 2017. Subjective Pain: controlled PO Intake: normal Voiding: no voiding problems Overnight she slept well. No BM this morning but this is normal for her. Pain is controlled and she is working with PT. She is aware she will need 6 weeks antibiotics and a picc line. Review of Systems Constitutional: No fever, No chills Respiratory: No cough, No shortness of breath Cardiac: No chest pain Abdomen: No pain, No nausea, No vomiting, No diarrhea, No constipation Female : No dysuria, No urinary frequency, No hematuria Psychiatric: No depression symptoms Skin: No rash Objective Vital Signs Date Time Temp Pulse Resp B/P (MAP) Pulse Ox O2 Delivery O2 Flow Rate FiO2 05/24/17 08:03 36.7 74 18 133/67 (89) 96 Room Air 05/24/17 07:20 Room Air 05/24/17 03:54 36.5 71 18 140/74 (96) 94 Room Air 05/23/17 23:20 Nasal Cannula 1.0 05/23/17 23:05 36.4 70 16 122/76 (91) 96 Nasal Cannula 4.0 05/23/17 20:42 72 16 121/68 (85) 05/23/17 19:40 71 16 130/84 (99) 96 4.0 05/23/17 18:59 70 16 138/73 (94) 93 Nasal Cannula 4.0 05/23/17 18:10 36.7 70 20 131/70 (90) 92 Nasal Cannula 4.0 05/23/17 17:40 Nasal Cannula 4.0 05/23/17 17:40 Nasal Cannula 4.0 05/23/17 17:40 36.8 70 15 128/69 (88) 92 Nasal Cannula 4.0 05/23/17 17:15 37.1 70 14 139/73 93 Nasal Cannula 4 05/23/17 17:05 70 18 138/77 92 Nasal Cannula 4 05/23/17 16:55 70 16 145/75 93 Oxymask 8 05/23/17 16:45 70 18 144/80 94 Oxymask 12 05/23/17 16:36 37.5 73 12 148/74 94 Oxymask 15 05/23/17 13:03 37.1 73 16 113/67 (82) 91 Room Air Physical Exam General Appearance: WD/WN, no apparent distress (sitting in chair and later seen ambulating fine with PT ) Eyes: bilateral eyes EOMI ENT: hearing grossly normal Respiratory/Chest: lungs clear, normal breath sounds, no respiratory distress, no accessory muscle use Cardiovascular: regular rate, rhythm Abdomen: normal bowel sounds, non tender, soft Extremities: no pedal edema, normal capillary refill, + pertinent finding ( left knee swelling post surgery) Neurologic/Psychiatric: alert, normal mood/affect, oriented x 3 Skin: normal color, warm/dry, no rash Laboratory Results Last 24 Hours Test 05/23/17 12:01 05/23/17 12:17 05/23/17 13:21 05/23/17 16:39 Bedside Glucose 185 mg/dl 180 mg/dl 168 mg/dl Urine Color DK YELLOW Urine Appearance CLEAR Urine pH 5.0 Urine Specific [place] 1.024 Urine Protein 2+ Urine Glucose (UA) NEG Urine Ketones NEG Urine Occult Blood 3+ Urine Nitrite NEG Urine Bilirubin NEG Urine Urobilinogen POS Urine Leukocyte Esterase SMALL Urine WBC (Auto) 5-10 /hpf Urine RBC (Auto) 5-10 /hpf Urine Hyaline Casts (Auto) 1-5 /lpf Urine Epithelial Cells (Auto) >30 /lpf Urine Bacteria (Auto) NEG Test 05/23/17 17:43 05/23/17 21:09 05/24/17 08:12 05/24/17 08:58 Bedside Glucose 226 mg/dl 232 mg/dl 194 mg/dl White Blood Count 12.35 K/uL Red Blood Count 3.58 M/uL Hemoglobin 11.5 g/dL Hematocrit 33.4 % Mean Corpuscular Volume 93.3 fL Mean Corpuscular Hemoglobin 32.1 pg Mean Corpuscular Hemoglobin Concent 34.4 g/dl RDW Standard Deviation 43.3 fL RDW Coefficient of Variation 12.8 % Platelet Count 179 K/uL Mean Platelet Volume 10.4 fL Sodium Level 136 mmol/L Potassium Level 4.1 mmol/L Chloride Level 108 mmol/L Carbon Dioxide Level 24 mmol/L Anion Gap 4.0 mmol/L Blood Urea Nitrogen 29 mg/dl Creatinine 0.89 mg/dl Est Creatinine Clear Calc Drug Dose 57.1 ml/min Estimated GFR () 74.5 Estimated GFR (Non- 64.3 BUN/Creatinine Ratio 32.3 Random Glucose 213 mg/dl Calcium Level 8.7 mg/dl Medications Current Inpatient Medications Medications (Trade) Dose Ordered Sig/Demetrius Route Start Time Stop Time Status Last Admin Dose Admin Insulin Aspart (novoLOG ASPART) SLIDING SCALE PARAMETER ACHS SC 05/23/17 12:00 06/22/17 11:59 05/24/17 12:50 3 UNITS Hydralazine HCl (HydrALAZINE INJ) 10 mg Q4H PRN IV 05/23/17 11:15 06/22/17 11:14 Levothyroxine Sodium (Synthroid Tab) 50 mcg DAILYBB PO 05/24/17 06:00 06/23/17 05:59 05/24/17 05:35 50 MCG Glucose (Glucose 40% Gel) 15-30 GRAMS 15 GRAMS... UD PRN PO 05/23/17 12:30 06/22/17 12:29 Glucose (Glucose Chew Tab) 4-8 Tablets 4 Tabl... UD PRN PO 05/23/17 12:30 06/22/17 12:29 Dextrose (Dextrose 50% 50ML Syringe) 25-50ML OF 50% DW IV FOR... UD PRN IV 05/23/17 12:30 06/22/17 12:29 Glucagon (Glucagon Inj) 1 mg UD PRN SQ 05/23/17 12:30 06/22/17 12:29 Vancomycin HCl 1000 mg/Sodium Chloride 270 ml @ 125 mls/hr Q14H IV 05/24/17 03:00 07/05/17 02:59 05/24/17 03:07 125 MLS/HR Miscellaneous Information (Consult) 1 ea UD PRN N/A 05/23/17 14:00 06/22/17 13:59 Sodium Chloride 1,000 ml @ 100 mls/hr Q10H IV 05/23/17 16:45 05/24/17 16:44 05/24/17 13:21 100 MLS/HR Oxycodone HCl (Roxicodone Immediate Rel Tab) 1 TABLET FOR PAIN RATING... Q4H PRN PO 05/23/17 16:15 06/06/17 16:14 05/24/17 01:37 10 MG Magnesium Hydroxide (Milk Of Magnesia Susp) 30 ml Q6H PRN PO 05/23/17 16:15 2/15/18 16:14 Bisacodyl (Dulcolax Supp) 10 mg DAILY PRN MO 05/23/17 16:15 06/22/17 16:14 Sodium Biphosphate/ Sodium Phosphate (Fleet Enema) 132 ml DAILY PRN MO 05/23/17 16:15 06/22/17 16:14 Senna (Senokot Tab) 17.2 mg HS PO 05/23/17 21:00 06/22/17 20:59 05/23/17 21:16 17.2 MG Docusate Sodium (coLACE CAP) 100 mg BID PO 05/23/17 21:00 06/22/17 20:59 05/24/17 08:50 100 MG Diphenhydramine HCl (Benadryl Cap) 25 mg Q8H PRN PO 05/23/17 16:15 06/22/17 16:14 Diphenhydramine HCl (Benadryl Inj) 25 mg Q8H PRN IV 05/23/17 16:15 06/22/17 16:14 Al Hydrox/Mg Hydrox/Simethicone (Maalox Max Susp) 15 ml Q4H PRN PO 05/23/17 16:15 06/22/17 16:14 Zolpidem Tartrate (Ambien Tab) 5 mg HSZ PRN PO 05/23/17 16:15 06/22/17 16:14 Multivitamins (Multivitamin Tab) 1 tab QAM PO 05/24/17 09:00 06/23/17 08:59 05/24/17 08:49 1 TAB Ondansetron HCl (Zofran Inj) 4 mg Q6H PRN IV 05/23/17 16:15 06/22/17 16:14 Metoclopramide HCl (Reglan Inj) 10 mg Q6H PRN IV 05/23/17 16:15 06/22/17 16:14 Ferrous Gluconate (Ferrous Gluconate Tab) 324 mg TIDM PO 05/23/17 17:45 06/22/17 17:44 05/24/17 12:46 324 MG Aspirin (Ecotrin Tab) 325 mg BID PO 05/23/17 21:00 06/22/17 20:59 05/24/17 08:49 325 MG Tramadol HCl (Ultram Tab) 1 tablet for pain rating... Q4H PRN PO 05/23/17 16:15 06/22/17 16:14 Acetaminophen (Tylenol Tab) 1,000 mg Q8 PO 05/23/17 17:00 06/22/17 16:59 05/24/17 13:20 1,000 MG Morphine Sulfate (MoRPHine SULFATE INJ) 2 mg Q4HWA PRN IV 05/23/17 16:45 06/06/17 16:44 Morphine Sulfate (MoRPHine SULFATE INJ) 4 mg Q4HWA PRN IV 05/23/17 16:45 06/06/17 16:44 Assessment and Plan Assessment and Plan: 71 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 Septic Joint -I&D yesterday -Surgery following -Vancomycin, sensitivities pending -will need picc line for 6 weeks outpatient abx -PT assessment pending 2. Diabetes -sliding scale -hold januvia 3.HTN -hydralazine 10mg q4h PRN -lisnopril start 05/25 likely, norvasc held 4. CV risk -restart ASA 81mg today 5. HLD -rosuvastatin 5mg tab PO 4xwk 6. Hypothyroidism -Levothyroxine 0.5mg PO daily 7. DVT ppx -ASA 325 PO BID, ortho order 8. Disposition -Med/surg FULL CODE Continued [facility] stay due to: multiple IV medications needed, home environment unsafe for pt Discharge planning: home (patient does not want rehab facility )
[2017-05-24 11:19] VITALS: BP 132/78; PULSE 70; TEMP 36.4; O2SAT 91
[2017-05-24 12:10] VITALS: BP 132/78; PULSE 70; O2SAT 91
[2017-05-24 15:16] VITALS: BP 145/77; PULSE 70; TEMP 36.3; O2SAT 92
--- NOTE | 2017-05-24 15:33 | Orthopedic Progress Note ---
Orthopedic Progress Note Date of Service May 24, 2017. Subjective Post OP Day: 1 Reports: feeling well, pain controlled w PO medications, Denies: complaints, chest pain, SOB, nausea / vomiting, light headedness, calf pain Objective calves soft nontender, N/V intact, capillary refill less than 2 sec., dressing C /D/I, A&O x3, toes mobile, hemovac drainage (50cc/8 hours) Date Time Temp Pulse Resp B/P (MAP) Pulse Ox O2 Delivery O2 Flow Rate FiO2 05/24/17 15:16 36.3 70 18 145/77 (99) 92 Room Air 05/24/17 12:10 70 91 05/24/17 11:19 36.4 70 16 132/78 (96) 91 Room Air 05/24/17 08:03 36.7 74 18 133/67 (89) 96 Room Air 05/24/17 07:20 Room Air 05/24/17 03:54 36.5 71 18 140/74 (96) 94 Room Air 05/23/17 23:20 Nasal Cannula 1.0 05/23/17 23:05 36.4 70 16 122/76 (91) 96 Nasal Cannula 4.0 05/23/17 20:42 72 16 121/68 (85) 05/23/17 19:40 71 16 130/84 (99) 96 4.0 05/23/17 18:59 70 16 138/73 (94) 93 Nasal Cannula 4.0 05/23/17 18:10 36.7 70 20 131/70 (90) 92 Nasal Cannula 4.0 05/23/17 17:40 Nasal Cannula 4.0 05/23/17 17:40 Nasal Cannula 4.0 05/23/17 17:40 36.8 70 15 128/69 (88) 92 Nasal Cannula 4.0 05/23/17 17:15 37.1 70 14 139/73 93 Nasal Cannula 4 05/23/17 17:05 70 18 138/77 92 Nasal Cannula 4 05/23/17 16:55 70 16 145/75 93 Oxymask 8 05/23/17 16:45 70 18 144/80 94 Oxymask 12 05/23/17 16:36 37.5 73 12 148/74 94 Oxymask 15 Laboratory Results 24 Hours: Test 05/24/17 08:58 Hematocrit 33.4 % Hemoglobin 11.5 g/dL Assessment & Plan Assessment: POD #1 s/p Left Knee Incision and Drainage, Left Knee Poly exchange - presented with late infection with cultures from aspirate showing gram positive cocci, underwent I&D poly change on 05/23/17. intra op cultures pending ; currently on Vanco pending further cultures, ID on board, recommending likely 6 weeks of IV antibiotics followed by lifelong suppressive antibiotics -prevena wound vac -dvt proph with JESSICA/SCD/ASA Discharge Planning Discharge Planning: uncertain DVT Prophylaxis: TEDs, SCDs, ASA
--- NOTE | 2017-05-24 18:58 | Progress Note ---
Subjective Date of Service: May 24, 2017. Subjective pt has acceptable pain control, wants to go home after discharge and is disappointed will need iv antibiotics Review of Systems Constitutional: No fever, No chills, No weakness Cardiac: No chest pain, No PND, No edema Musculoskeletal: + joint pain, + muscle pain Female : No dysuria, No urinary frequency Psychiatric: No depression symptoms, No anhedonism, No anxiety Objective Vital Signs Date Time Temp Pulse Resp B/P (MAP) Pulse Ox O2 Delivery O2 Flow Rate FiO2 05/24/17 15:16 36.3 70 18 145/77 (99) 92 Room Air 05/24/17 12:10 70 91 05/24/17 11:19 36.4 70 16 132/78 (96) 91 Room Air 05/24/17 08:03 36.7 74 18 133/67 (89) 96 Room Air 05/24/17 07:20 Room Air 05/24/17 03:54 36.5 71 18 140/74 (96) 94 Room Air 05/23/17 23:20 Nasal Cannula 1.0 05/23/17 23:05 36.4 70 16 122/76 (91) 96 Nasal Cannula 4.0 05/23/17 20:42 72 16 121/68 (85) 05/23/17 19:40 71 16 130/84 (99) 96 4.0 05/23/17 18:59 70 16 138/73 (94) 93 Nasal Cannula 4.0 Physical Exam General Appearance: WD/WN, + mild distress Respiratory/Chest: chest non-tender, lungs clear, normal breath sounds Cardiovascular: regular rate, rhythm, no murmur Abdomen: normal bowel sounds, non tender, soft Neurologic/Psychiatric: alert, oriented x 3 Laboratory Results Last 24 Hours Test 05/23/17 21:09 05/24/17 08:12 05/24/17 08:58 05/24/17 12:17 Bedside Glucose 232 mg/dl 194 mg/dl 214 mg/dl White Blood Count 12.35 K/uL Red Blood Count 3.58 M/uL Hemoglobin 11.5 g/dL Hematocrit 33.4 % Mean Corpuscular Volume 93.3 fL Mean Corpuscular Hemoglobin 32.1 pg Mean Corpuscular Hemoglobin Concent 34.4 g/dl RDW Standard Deviation 43.3 fL RDW Coefficient of Variation 12.8 % Platelet Count 179 K/uL Mean Platelet Volume 10.4 fL Sodium Level 136 mmol/L Potassium Level 4.1 mmol/L Chloride Level 108 mmol/L Carbon Dioxide Level 24 mmol/L Anion Gap 4.0 mmol/L Blood Urea Nitrogen 29 mg/dl Creatinine 0.89 mg/dl Est Creatinine Clear Calc Drug Dose 57.1 ml/min Estimated GFR () 74.5 Estimated GFR (Non- 64.3 BUN/Creatinine Ratio 32.3 Random Glucose 213 mg/dl Calcium Level 8.7 mg/dl Assessment and Plan 71 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 will hold januvia and have on ssi, resume on discharge htn will hold lisinopril continue norvasc, use hydralazine and restart lisinipril on 05/25 cardiovascular risk, aspirin used for dvt prevention at 325 bid, may hold crestor until after discharge DVT prevention per surgical preference aspirin Continued [facility] stay due to: multiple IV medications needed, home environment unsafe for pt Discharge planning: home (patient does not want rehab facility )
[2017-05-24] MEDS: SENNA 8.6 MG TAB PO SCH (21:12)
[2017-05-24 23:21] VITALS: BP 167/83; PULSE 70; TEMP 37; O2SAT 93
[2017-05-25] MEDS: ACETAMINOPHEN 500 MG TAB PO SCH ×3 (05:33→21:31)
[2017-05-25] MEDS: LEVOTHYROXINE 50 MCG TAB PO SCH (05:33)
[2017-05-25] MEDS: VANCOMYCIN INJ 1,000 MG in SODIUM CHLORIDE 0.9% 250ML 250 ML IV SCH (06:16)
[2017-05-25 07:11] VITALS: BP 144/83; PULSE 71; TEMP 37; O2SAT 91
[2017-05-25 07:42] LABS: CREATININE 0.88 mg/dl (0.60-1.20)
--- NOTE | 2017-05-25 08:08 | Orthopedic Progress Note ---
Orthopedic Progress Note Date of Service May 25, 2017. Subjective Post OP Day: 2 Reports: feeling well, pain controlled w PO medications, Denies: complaints, chest pain, SOB, nausea / vomiting, light headedness, calf pain Objective calves soft nontender, N/V intact, capillary refill less than 2 sec., dressing C /D/I, A&O x3, toes mobile Date Time Temp Pulse Resp B/P (MAP) Pulse Ox O2 Delivery O2 Flow Rate FiO2 05/25/17 07:11 37.0 71 18 144/83 (103) 91 Room Air 05/24/17 23:21 37.0 70 20 167/83 (111) 93 Room Air 05/24/17 23:20 Room Air 05/24/17 15:50 Room Air 05/24/17 15:16 36.3 70 18 145/77 (99) 92 Room Air 05/24/17 12:10 70 91 05/24/17 11:19 36.4 70 16 132/78 (96) 91 Room Air Laboratory Results 24 Hours: Test 05/24/17 08:58 Hematocrit 33.4 % Hemoglobin 11.5 g/dL Assessment & Plan Assessment: POD #2 s/p Left Knee Incision and Drainage, Left Knee Poly exchange - presented with late infection with cultures from aspirate showing gram positive cocci, underwent I&D poly change on 05/23/17. intra op cultures pending ; currently on Vanco pending further cultures, ID on board, recommending likely 6 weeks of IV antibiotics followed by lifelong suppressive antibiotics -place order for PICC -calling for final cx results from [facility] -prevena wound vac -dvt proph with JESSICA/SCD/ASA Discharge Planning Discharge Planning: uncertain DVT Prophylaxis: TEDs, SCDs, ASA
--- NOTE | 2017-05-25 09:44 | Medical Student: [facility] ---
Med Student Progress Note Date of Service May 25, 2017. Subjective Pt evaluation today including: conversation w/ patient, physical exam, lab review Pain: well managed PO Intake: normal diet Voiding: no voiding problems overnight slept ok. no bowel movement but patient is not concerned and this is normal for her. pain is well controlled with current meds. worse when transferring or getting out of bed. continues to work with PT inpatient. Review of Systems Constitutional: No fever, No chills Respiratory: No cough, No sputum, No wheezing, No shortness of breath Cardiac: No chest pain Abdomen: + constipation, No pain, No nausea, No vomiting, No diarrhea Musculoskeletal: + problem reported (pain in left leg, unchanged ) Female : No dysuria Psychiatric: No depression symptoms Endo: No fatigue Skin: No rash, No itch Objective Vital Signs Date Time Temp Pulse Resp B/P (MAP) Pulse Ox O2 Delivery O2 Flow Rate FiO2 05/25/17 07:11 37.0 71 18 144/83 (103) 91 Room Air 05/24/17 23:21 37.0 70 20 167/83 (111) 93 Room Air 05/24/17 23:20 Room Air 05/24/17 15:50 Room Air 05/24/17 15:16 36.3 70 18 145/77 (99) 92 Room Air 05/24/17 12:10 70 91 05/24/17 11:19 36.4 70 16 132/78 (96) 91 Room Air Physical Exam General Appearance: WD/WN, no apparent distress Eyes: bilateral eyes EOMI ENT: hearing grossly normal Neck: supple, no adenopathy Respiratory/Chest: chest non-tender, lungs clear, normal breath sounds, no respiratory distress, no accessory muscle use Cardiovascular: regular rate, rhythm, no murmur Abdomen: normal bowel sounds, non tender, soft Extremities: no pedal edema, no calf tenderness, + swelling (wound vac ) Neurologic/Psychiatric: alert, normal mood/affect, oriented x 3 Skin: normal color, warm/dry, no rash Laboratory Results Last 24 Hours Test 05/24/17 12:17 05/24/17 17:16 05/24/17 20:37 05/25/17 06:48 Bedside Glucose 214 mg/dl 200 mg/dl 244 mg/dl Creatinine 0.88 mg/dl Est Creatinine Clear Calc Drug Dose 57.7 ml/min Estimated GFR () 75.5 Estimated GFR (Non- 65.2 Test 05/25/17 08:11 Bedside Glucose 185 mg/dl Medications Current Inpatient Medications Medications (Trade) Dose Ordered Sig/Demetrius Route Start Time Stop Time Status Last Admin Dose Admin Insulin Aspart (novoLOG ASPART) SLIDING SCALE PARAMETER ACHS SC 05/23/17 12:00 06/22/17 11:59 05/24/17 21:19 4 UNITS Hydralazine HCl (HydrALAZINE INJ) 10 mg Q4H PRN IV 05/23/17 11:15 06/22/17 11:14 Levothyroxine Sodium (Synthroid Tab) 50 mcg DAILYBB PO 05/24/17 06:00 06/23/17 05:59 05/25/17 05:33 50 MCG Glucose (Glucose 40% Gel) 15-30 GRAMS 15 GRAMS... UD PRN PO 05/23/17 12:30 06/22/17 12:29 Glucose (Glucose Chew Tab) 4-8 Tablets 4 Tabl... UD PRN PO 05/23/17 12:30 06/22/17 12:29 Dextrose (Dextrose 50% 50ML Syringe) 25-50ML OF 50% DW IV FOR... UD PRN IV 05/23/17 12:30 06/22/17 12:29 Glucagon (Glucagon Inj) 1 mg UD PRN SQ 05/23/17 12:30 06/22/17 12:29 Vancomycin HCl 1000 mg/Sodium Chloride 270 ml @ 125 mls/hr Q14H IV 05/24/17 03:00 07/05/17 02:59 05/25/17 06:16 125 MLS/HR Miscellaneous Information (Consult) 1 ea UD PRN N/A 05/23/17 14:00 06/22/17 13:59 Oxycodone HCl (Roxicodone Immediate Rel Tab) 1 TABLET FOR PAIN RATING... Q4H PRN PO 05/23/17 16:15 06/06/17 16:14 05/24/17 01:37 10 MG Magnesium Hydroxide (Milk Of Magnesia Susp) 30 ml Q6H PRN PO 05/23/17 16:15 06/22/17 16:14 Bisacodyl (Dulcolax Supp) 10 mg DAILY PRN MT 05/23/17 16:15 06/22/17 16:14 Sodium Biphosphate/ Sodium Phosphate (Fleet Enema) 132 ml DAILY PRN MT 05/23/17 16:15 06/22/17 16:14 Senna (Senokot Tab) 17.2 mg HS PO 05/23/17 21:00 06/22/17 20:59 05/24/17 21:12 17.2 MG Docusate Sodium (coLACE CAP) 100 mg BID PO 05/23/17 21:00 06/22/17 20:59 05/24/17 21:12 100 MG Diphenhydramine HCl (Benadryl Cap) 25 mg Q8H PRN PO 05/23/17 16:15 06/22/17 16:14 Diphenhydramine HCl (Benadryl Inj) 25 mg Q8H PRN IV 05/23/17 16:15 06/22/17 16:14 Al Hydrox/Mg Hydrox/Simethicone (Maalox Max Susp) 15 ml Q4H PRN PO 05/23/17 16:15 06/22/17 16:14 Zolpidem Tartrate (Ambien Tab) 5 mg HSZ PRN PO 05/23/17 16:15 06/22/17 16:14 Multivitamins (Multivitamin Tab) 1 tab QAM PO 05/24/17 09:00 06/23/17 08:59 05/24/17 08:49 1 TAB Ondansetron HCl (Zofran Inj) 4 mg Q6H PRN IV 05/23/17 16:15 06/22/17 16:14 Metoclopramide HCl (Reglan Inj) 10 mg Q6H PRN IV 05/23/17 16:15 06/22/17 16:14 Ferrous Gluconate (Ferrous Gluconate Tab) 324 mg TIDM PO 05/23/17 17:45 06/22/17 17:44 05/24/17 18:04 324 MG Aspirin (Ecotrin Tab) 325 mg BID PO 05/23/17 21:00 06/22/17 20:59 05/24/17 21:12 325 MG Tramadol HCl (Ultram Tab) 1 tablet for pain rating... 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 Septic Joint -I&D yesterday -Surgery following -Vancomycin, sensitivities pending -will need picc line for 6 weeks outpatient abx -wound vac in place 2. Diabetes -sliding scale, adjust for better glucose control -hold Januvia 3.HTN -hydralazine 10mg q4h PRN -lisinopril start today 20mg PO daily, home dose 4. CV risk -restart ASA 81mg today 5. HLD -rosuvastatin 5mg tab PO 4xwk 6. Hypothyroidism -Levothyroxine 0.5mg PO daily 7. DVT ppx -ASA 325 PO BID, ortho order 8. Disposition -Med/surg -Case management/ PT input - pt to go home with family help and home PT daily -likely discharge today/tomorrow pending picc line placement FULL CODE Continued [facility] stay due to: multiple IV medications needed, home environment unsafe for pt Discharge planning: home (patient does not want rehab facility, home PT )
[2017-05-25] MEDS: ASPIRIN 325 MG ECTAB PO SCH ×2 (09:56→21:29)
[2017-05-25] MEDS: DOCUSATE SODIUM 100 MG CAP PO SCH ×2 (09:56→21:30)
[2017-05-25] MEDS: FERROUS GLUCONATE 324 MG TAB PO SCH ×3 (09:57→18:11)
[2017-05-25] MEDS: MULTIVITAMIN TAB PO SCH (09:57)
[2017-05-25] MEDS: INSULIN ASPART 100 UNITS/ML 3 ML PEN SC SCH ×4 (10:00→22:32)
[2017-05-25 15:38] VITALS: BP 163/80; PULSE 72; TEMP 36.8; O2SAT 92
--- NOTE | 2017-05-25 16:53 | Progress Note ---
Subjective Date of Service: May 25, 2017. Subjective pt has pain in her knee otherwise is without new issuess has poor glucose control and will resume her home januvia bp up and will resume her home lisinopril is eating and did have BM, Review of Systems Constitutional: + weakness, No fever, No chills Respiratory: No cough, No shortness of breath Cardiac: No chest pain, No edema Abdomen: No pain, No constipation Musculoskeletal: + joint pain, + muscle pain Objective Vital Signs Date Time Temp Pulse Resp B/P (MAP) Pulse Ox O2 Delivery O2 Flow Rate FiO2 05/25/17 15:38 36.8 72 18 163/80 (107) 92 Room Air 05/25/17 10:56 Room Air 05/25/17 07:11 37.0 71 18 144/83 (103) 91 Room Air 05/24/17 23:21 37.0 70 20 167/83 (111) 93 Room Air 05/24/17 23:20 Room Air Physical Exam General Appearance: WD/WN, + mild distress Respiratory/Chest: chest non-tender, lungs clear, normal breath sounds Cardiovascular: regular rate, rhythm, no JVD Abdomen: normal bowel sounds, non tender, soft Neurologic/Psychiatric: alert, oriented x 3 Laboratory Results Last 24 Hours Test 05/24/17 17:16 05/24/17 20:37 05/25/17 06:48 05/25/17 08:11 Bedside Glucose 200 mg/dl 244 mg/dl 185 mg/dl Creatinine 0.88 mg/dl Est Creatinine Clear Calc Drug Dose 57.7 ml/min Estimated GFR () 75.5 Estimated GFR (Non- 65.2 Test 05/25/17 12:12 Bedside Glucose 178 mg/dl Assessment and Plan 71 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 ASked pharmacy to alter vancomycin dosing to achieve once a day dosing as home insurance will be expensive with daptomycin, pharmacy will alter dose 05/26 diabetes. restart januvia and tighten ssi, htn resume lisinopril continue norvasc, use hydralazine cardiovascular risk, aspirin used for dvt prevention at 325 bid, may hold crestor until after discharge DVT prevention per surgical preference aspirin Continued [facility] stay due to: multiple IV medications needed, home environment unsafe for pt Discharge planning: home (patient does not want rehab facility, home PT )
[2017-05-25] MEDS ORDERED: AMLODIPINE BESYLATE 5 MG TAB PO ONE (17:00)
--- NOTE | 2017-05-25 17:17 | DIAGNOSTIC IMAGING REPORT ---
SINGLE VIEW CHEST CLINICAL HISTORY: PICC placement. FINDINGS: An AP, portable, upright chest radiograph is compared to study dated 05/22/2017. The examination is degraded by portable technique, apical lordotic positioning, and patient rotation. A left-sided PICC line has been placed. The tip of the catheter projects over the SVC. A 2-lead cardiac pacemaker is unchanged in position. The heart is enlarged and there is atherosclerotic calcification of the thoracic aorta. The pulmonary vasculature is noncongested. The mitral annulus is densely calcified. No airspace consolidation or large pleural effusion is identified. There is minimal left basilar atelectasis. No pneumothorax is seen. The skeletal structures are osteopenic. There are healed left clavicular and left-sided rib fractures. IMPRESSION: 1. A left-sided PICC line has been placed. The tip of the catheter projects over the SVC. 2. Cardiomegaly and cardiac pacemaker. There is no radiographic evidence of congestive failure. 3. No airspace consolidation or large pleural effusion is identified. Electronically signed by: Yousuf Harry M.D. 05/25/2017 5:16 PM Dictated Date/Time: 05/25/2017 5:14 PM
[2017-05-25] MEDS ORDERED: VANCOMYCIN INJ 500 MG in SODIUM CHLORIDE 0.9% 250ML 250 ML IV ONE (18:00)
[2017-05-25] MEDS: LISINOPRIL 20 MG TAB PO SCH (18:10)
[2017-05-25] MEDS: SITAGLIPTIN 25 MG TAB PO SCH (18:11)
[2017-05-25] MEDS: SENNA 8.6 MG TAB PO SCH (21:29)
[2017-05-25 23:00] VITALS: BP 145/79; PULSE 70; TEMP 36.5; O2SAT 94
[2017-05-26] MEDS: LEVOTHYROXINE 50 MCG TAB PO SCH (05:20)
[2017-05-26] MEDS: ACETAMINOPHEN 500 MG TAB PO SCH ×2 (05:21→14:00)
[2017-05-26 05:40] LABS: HEMATOCRIT 30.9 % (37-47); HEMOGLOBIN 10.5 g/dL (12.0-16.0); MEAN CELL VOLUME 93.1 fL (80-100); MEAN CORPUSCULAR HEMOGLOBIN 31.6 pg (25-34); NUCLEATED RED BLOOD CELL ABS 0.02 K/uL (0-0); PLATELET COUNT 208 K/uL (130-400); RED CELL DISTRIBUTION WIDTH CV 13.1 % (11.5-14.5); RED CELL DISTRIBUTION WIDTH SD 43.9 fL (36.4-46.3); WHITE BLOOD COUNT 11.11 K/uL (4.8-10.8)
[2017-05-26 06:09] LABS: CALCIUM 8.5 mg/dl (8.5-10.1); CREATININE 0.86 mg/dl (0.60-1.20); POTASSIUM 3.4 mmol/L (3.5-5.1)
[2017-05-26 07:01] VITALS: BP 151/84; PULSE 70; TEMP 36.5; O2SAT 94
[2017-05-26] MEDS: DOCUSATE SODIUM 100 MG CAP PO SCH (09:00)
[2017-05-26] MEDS ORDERED: AMLODIPINE BESYLATE 5 MG TAB PO SCH (09:00)
--- NOTE | 2017-05-26 09:32 | Medical Student: [facility] ---
Med Student Progress Note Date of Service May 26, 2017. Subjective Pt evaluation today including: conversation w/ patient, physical exam, chart review, lab review, review of studies Pain: well controlled PO Intake: diabetic diet Voiding: no voiding problems Overnight slept well. Had a large BM finally, feels better. PICC line yesterday and no discomfort in the arm. No heart palpitations. Pain in left knee is still worse when getting out of bed but she says the acetaminophen is enough. She expresses an interest to go home as soon as possible. Review of Systems Constitutional: No fever Respiratory: No cough, No wheezing, No shortness of breath Cardiac: No chest pain Abdomen: No pain, No nausea, No vomiting, No diarrhea, No constipation Musculoskeletal: No joint pain Female : No dysuria Endo: No fatigue Skin: No rash, No itch Objective Vital Signs Date Time Temp Pulse Resp B/P (MAP) Pulse Ox O2 Delivery O2 Flow Rate FiO2 05/26/17 07:01 36.5 70 18 151/84 (106) 94 Room Air 05/25/17 23:40 Room Air 05/25/17 23:00 36.5 70 16 145/79 (101) 94 Room Air 05/25/17 19:24 Room Air 05/25/17 15:38 36.8 72 18 163/80 (107) 92 Room Air 05/25/17 10:56 Room Air Physical Exam General Appearance: WD/WN, no apparent distress Eyes: bilateral eyes EOMI ENT: hearing grossly normal Respiratory/Chest: chest non-tender, lungs clear, normal breath sounds, no respiratory distress, no accessory muscle use Cardiovascular: regular rate, rhythm, no edema, no gallop, no JVD, no murmur Abdomen: normal bowel sounds, non tender, soft Extremities: no calf tenderness, + swelling Neurologic/Psychiatric: alert, normal mood/affect, oriented x 3 Skin: normal color, warm/dry, no rash Comments: wound vac in place, left knee iced, swelling is improved, she is able to walk, steps yesterday with PT, better mobility but still limited flexion. 2+ dorsalis pedis pulse, normal coloration of foot/toes Laboratory Results Last 24 Hours Test 05/25/17 12:12 05/25/17 17:02 05/25/17 20:47 05/26/17 05:21 Bedside Glucose 178 mg/dl 193 mg/dl 182 mg/dl White Blood Count 11.11 K/uL Red Blood Count 3.32 M/uL Hemoglobin 10.5 g/dL Hematocrit 30.9 % Mean Corpuscular Volume 93.1 fL Mean Corpuscular Hemoglobin 31.6 pg Mean Corpuscular Hemoglobin Concent 34.0 g/dl RDW Standard Deviation 43.9 fL RDW Coefficient of Variation 13.1 % Platelet Count 208 K/uL Mean Platelet Volume 10.0 fL Nucleated RBC Absolute Count (auto) 0.02 K/uL Nucleated Red Blood Cells % 0.2 % Sodium Level 139 mmol/L Potassium Level 3.4 mmol/L Chloride Level 107 mmol/L Carbon Dioxide Level 25 mmol/L Anion Gap 7.0 mmol/L Blood Urea Nitrogen 22 mg/dl Creatinine 0.86 mg/dl Est Creatinine Clear Calc Drug Dose 59.1 ml/min Estimated GFR () 77.7 Estimated GFR (Non- 67.0 BUN/Creatinine Ratio 26.0 Random Glucose 162 mg/dl Calcium Level 8.5 mg/dl Assessment and Plan Assessment and Plan: 71 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 Septic Joint -I&D and poly exchange -Surgery following -Vancomycin for now, alpha strep not entero, sensitivities pending -will need picc line for 6 weeks outpatient abx -wound vac in place 2. Diabetes -needs tighter control, sliding scale adjusted for better glucose control -start Januvia home dose 3.HTN -hydralazine 10mg q4h PRN -lisinopril start yesterday 20mg PO daily, home dose 4. HLD -rosuvastatin 5mg tab PO 4xwk 5. Hypothyroidism -Levothyroxine 0.5mg PO daily 6. DVT ppx -ASA 325 PO BID, ortho order 7. Disposition -Med/surg -Case management/ PT input - pt to go home with family help and home PT daily -likely discharge tomorrow pending sensitivities and case management FULL CODE Continued [facility] stay due to: multiple IV medications needed, home environment unsafe for pt Discharge planning: home (patient does not want rehab facility, home PT )
[2017-05-26] MEDS ORDERED: VANCOMYCIN INJ 1,500 MG in SODIUM CHLORIDE 0.9% 500ML 500 ML IV SCH (10:00)
--- NOTE | 2017-05-26 10:19 | Orthopedic Progress Note ---
Orthopedic Progress Note Date of Service May 26, 2017. Subjective Post OP Day: 3 Reports: feeling well, Denies: complaints Objective calves soft nontender, N/V intact, dressing C/D/I (Prevena intact), A&O x3, toes mobile Date Time Temp Pulse Resp B/P (MAP) Pulse Ox O2 Delivery O2 Flow Rate FiO2 05/26/17 08:10 Room Air 05/26/17 07:01 36.5 70 18 151/84 (106) 94 Room Air 05/25/17 23:40 Room Air 05/25/17 23:00 36.5 70 16 145/79 (101) 94 Room Air 05/25/17 19:24 Room Air 05/25/17 15:38 36.8 72 18 163/80 (107) 92 Room Air 05/25/17 10:56 Room Air Laboratory Results 24 Hours: Test 05/26/17 05:21 Hematocrit 30.9 % Hemoglobin 10.5 g/dL Additional Notes: RUN DATE: 05/26/17 [facility] LAB PAGE 1 RUN TIME: 08 Specimen Inquiry PATIENT: JUAN J DURAN LOC: [facility] U # : [id number] AGE/SX: 71/F ROOM: [facility] REG : 05/22/[address]: Edgar Solorio D.O. : 1945 BED: 2 DIS : STATUS: ADM IN TLOC: SPEC #: [id number] JEÚSS: 05/23/17 STATUS: RES REQ #: [id number] RECD: 05/23/[address]: Edgar Solorio, D.O. SOURCE: [facility]INT [facility] ENTR: 05/23/[address] [facility] DR: Rahul Hart MD [facility]: KNEE LEFT Edgar Rehman M.D. Mosch, George, M.D. ORDERED: AER/TARAH CULTSMR Procedure Result Verified Site GRAM STAIN Final 05/24/17 RESULT MANY WBCs SEEN NO ORGANISMS SEEN OR AER/TARAH CULT Preliminary 05/26/17 Organism 1 ALPHA STREP. NOT ENTEROCOCCUS QUANITY RARE SENS SENSITIVITY TO FOLLOW Assessment & Plan Assessment: POD #3 s/p Left Knee Incision and Drainage, Left Knee Poly exchange - presented with late infection with cultures from aspirate showing gram positive cocci, underwent I&D poly change on 05/23/17. intra op cx showing Alpha Strep; currently on Vanco pending sensitivities, ID on board, recommending likely 6 weeks of IV antibiotics followed by lifelong suppressive antibiotics -PICC line in -prevena wound vac -dvt proph with JESSICA/SCD/ASA Inhouse Planning Pain Management: Morphine, PO Tylenol, Oxy IR DVT Prophylaxis: TEDs, SCDs, ASA Discharge Planning Discharge Planning: home with home health DVT Prophylaxis: TEDs, SCDs, ASA
--- NOTE | 2017-05-26 10:25 | Discharge Instructions ---
Discharge Instructions Date of Service May 26, 2017. Admission Reason for Admission: Left Knee Effusion, Possible Sx Discharge Discharge Diagnosis / Problem: Left Septic TKA Discharge Goals Goal(s): Decrease discomfort, Improve function, Increase independence Activity Recommendations Activity Limitations: per Instructions/Follow-up section Weightbearing Status: Left weightbearing (as tolerated) . Instructions / Follow-Up Instructions / Follow-Up ACTIVITY RECOMMENDATIONS: SELF CARE INSTRUCTIONS AFTER TOTAL KNEE REPLACEMENT A. You may need to continue a physical therapy program after discharge from the hospital. There are several options available to you. Your doctor will assist you in selecting the best one for you. 1. An out-patient facility 2 to 3 times a week for therapy or home therapy. 2. Continue working on all exercises taught to you in the hospital. Your goals should be to increase bending of your knee to 90 degrees and beyond and to fully straighten your knee. B. You may progress at your own pace from walking with a walker or crutches to a cane; then to no assistive devices. C. Make walking a part of your daily routine. Be up as much as comfortable with rest periods throughout the day. Rest with leg elevation is very important. Use the ice wrap frequently for the first 3-4 weeks. D. There are no restrictions on activities. 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 E. Wear the long elastic stockings (JESSICA hose) 20 hours a day for 2 weeks after surgery. They can be removed several times a day for laundering and for a bath. F. You may shower, no tub baths until cleared by your doctor. SPECIAL CARE INSTRUCTIONS: VERY IMPORTANT TO READ AND REVIEW YOU WILL HAVE IV ANTIBIOTICS FOR 6 WEEKS. HOME HEALTH WILL CONTINUE TO COME TO YOUR HOUSE TO ADMINISTER ANTIBIOTICS AND ALSO DO PT/OT. YOU MAY NEED WEEKLY LAB DRAWS WHICH WILL BE DONE BY HOME HEALTH SERVICES. A. There are a few signs you need to watch for after you are home. Call [facility] if you notice any of the followin. Increased severe knee pain. Some pain is expected especially when you exercise. 2. Increased swelling in your leg or knee; pain or swelling of the calf muscle in either lower leg. 3. Any fluid drainage from the incision. 4. Shortness of breath or chest pain. B. Please call [facility] at if you have any concerns or questions about your operation or recovery. The doctor or his nurse will return your call promptly. C. You must take antibiotics before dental work, bladder, bowel or other surgery. Your doctor will provide you with a permanent care to carry describing this precaution. IMPORTANT: * REMEMBER TO TAKE ASPIRIN, 81 MG, TWICE DAILY FOR 4 WEEKS UNLESS OTHERWISE DIRECTED. THIS IS YOUR BLOOD THINNER. * HIGH RISK PATIENTS MAY BE PRESCRIBED A STRONGER BLOOD THINNER. THIS WILL BE PROVIDED AT DISCHARGE. * CALL IF INCREASED PAIN, REDNESS, DRAINAGE OR FEVER GREATER THAT 101. * WEAR JESSICA HOSE 20 HOURS PER DAY FOR 2 WEEKS. * Prevena- This is a large suction dressing covering your incision. This will help pull any excess drainage from the wound and allow your incision to heal properly. You may shower with this if you can keep the unit outside of the shower. If any bleeding or leakage is noted please call your doctor's office. This will remain on your incision for 7 days and then should be removed. This can be done yourself or by the home nursing staff if applicable. The entire unit is disposable once removed. Once removed, keep incision clean and dry. If redness or drainage is noted, please call your surgeon. . FOLLOW UP VISIT: If appointment is not already scheduled: Please call [facility] to make a follow-up appointment for 2 weeks after your surgery at . FOLLOW UP WITH DR VILLARREAL OR DR THOMAS IN 10 - 14 DAYS. CALL FOR APPT. [phone] Current Hospital Diet Patient's current hospital diet: Diabetes Type 2 Diet Discharge Diet Recommended Diet: Diabetes Type 2 Diet Procedures Procedures Performed: Left Knee Incision and Drainage, Left Knee Poly exchange to a size 3 for by 10 Jovita Pending Studies Studies pending at discharge: no Medical Emergencies . Who to Call and When: Medical Emergencies: If at any time you feel your situation is an emergency, please call 911 immediately. . Non-Emergent Contact Non-Emergency issues call your: Surgeon Call Non-Emergent contact if: temperature is above 101.5, your pain is not controlled, your pain is worsening, wound has increased drainage, wound has increased redness . "Provider Documentation" section prepared by Deo Kyel. . VTE Core Measure Inpt VTE Proph given/why not?: Other Anticoagulation, T.E.Jerel Jessica, SCD's [place] Drug Monitoring Program Search Results: patient reviewed within database, no issues identified
[2017-05-26] MEDS: MULTIVITAMIN TAB PO SCH (10:29)
[2017-05-26] MEDS: FERROUS GLUCONATE 324 MG TAB PO SCH ×2 (10:29→13:17)
[2017-05-26] MEDS: SITAGLIPTIN 25 MG TAB PO SCH (10:30)
[2017-05-26] MEDS: ASPIRIN 325 MG ECTAB PO SCH (10:30)
[2017-05-26] MEDS: LISINOPRIL 20 MG TAB PO SCH (10:31)
[2017-05-26] MEDS: INSULIN ASPART 100 UNITS/ML 3 ML PEN SC SCH ×2 (10:35→13:22)
[2017-05-26] MEDS ORDERED: MAGNESIUM SULFATE 1GM / D5W 1 GM in PREMIXED IN D5W 100 ML IV ONE (12:30)
[2017-05-26] MEDS ORDERED: POTASSIUM CHLORIDE 20 MEQ TABCR PO ONE (13:00)
--- NOTE | 2017-05-26 14:21 | Infectious Disease Progress Nt ---
Progress Note Date of Service May 26, 2017. Subjective Pt evaluation today including: conversation w/ patient, physical exam, chart review, lab review, review of studies, conversation w/ specialty sales consultant, review of inpatient medication list Patient offering no new complaints today. Remains afebrile. Pain controlled. Tolerating antibiotic without apparent difficulty. Operative cultures now growing streptococcal species. All Other Systems: Reviewed and Negative Medications Current Inpatient Medications Medications (Trade) Dose Ordered Sig/Demetrius Route Start Time Stop Time Status Last Admin Dose Admin Insulin Aspart (novoLOG ASPART) SLIDING SCALE PARAMETER ACHS SC 05/23/17 12:00 06/22/17 11:59 05/26/17 13:22 2 UNITS Hydralazine HCl (HydrALAZINE INJ) 10 mg Q4H PRN IV 05/23/17 11:15 06/22/17 11:14 Levothyroxine Sodium (Synthroid Tab) 50 mcg DAILYBB PO 05/24/17 06:00 06/23/17 05:59 05/26/17 05:20 50 MCG Glucose (Glucose 40% Gel) 15-30 GRAMS 15 GRAMS... UD PRN PO 05/23/17 12:30 06/22/17 12:29 Glucose (Glucose Chew Tab) 4-8 Tablets 4 Tabl... UD PRN PO 05/23/17 12:30 06/22/17 12:29 Dextrose (Dextrose 50% 50ML Syringe) 25-50ML OF 50% DW IV FOR... UD PRN IV 05/23/17 12:30 06/22/17 12:29 Glucagon (Glucagon Inj) 1 mg UD PRN SQ 05/23/17 12:30 06/22/17 12:29 Miscellaneous Information (Consult) 1 ea UD PRN N/A 05/23/17 14:00 06/22/17 13:59 Oxycodone HCl (Roxicodone Immediate Rel Tab) 1 TABLET FOR PAIN RATING... Q4H PRN PO 05/23/17 16:15 06/06/17 16:14 05/24/17 01:37 10 MG Magnesium Hydroxide (Milk Of Magnesia Susp) 30 ml Q6H PRN PO 05/23/17 16:15 06/22/17 16:14 Bisacodyl (Dulcolax Supp) 10 mg DAILY PRN ND 05/23/17 16:15 06/22/17 16:14 Sodium Biphosphate/ Sodium Phosphate (Fleet Enema) 132 ml DAILY PRN ND 05/23/17 16:15 06/22/17 16:14 Senna (Senokot Tab) 17.2 mg HS PO 05/23/17 21:00 06/22/17 20:59 05/25/17 21:29 17.2 MG Docusate Sodium (coLACE CAP) 100 mg BID PO 05/23/17 21:00 06/22/17 20:59 05/25/17 21:30 100 MG Diphenhydramine HCl (Benadryl Cap) 25 mg Q8H PRN PO 05/23/17 16:15 06/22/17 16:14 Diphenhydramine HCl (Benadryl Inj) 25 mg Q8H PRN IV 05/23/17 16:15 06/22/17 16:14 Al Hydrox/Mg Hydrox/Simethicone (Maalox Max Susp) 15 ml Q4H PRN PO 05/23/17 16:15 06/22/17 16:14 Zolpidem Tartrate (Ambien Tab) 5 mg HSZ PRN PO 05/23/17 16:15 06/22/17 16:14 Multivitamins (Multivitamin Tab) 1 tab QAM PO 05/24/17 09:00 06/23/17 08:59 05/26/17 10:29 1 TAB Ondansetron HCl (Zofran Inj) 4 mg Q6H PRN IV 05/23/17 16:15 06/22/17 16:14 Metoclopramide HCl (Reglan Inj) 10 mg Q6H PRN IV 05/23/17 16:15 06/22/17 16:14 Ferrous Gluconate (Ferrous Gluconate Tab) 324 mg TIDM PO 05/23/17 17:45 06/22/17 17:44 05/26/17 13:17 324 MG Aspirin (Ecotrin Tab) 325 mg BID PO 05/23/17 21:00 06/22/17 20:59 05/26/17 10:30 325 MG Tramadol HCl (Ultram Tab) 1 tablet for pain rating... Q4H PRN PO 05/23/17 16:15 06/22/17 16:14 Acetaminophen (Tylenol Tab) 1,000 mg Q8 PO 05/23/17 17:00 06/22/17 16:59 05/26/17 05:21 1,000 MG Morphine Sulfate (MoRPHine SULFATE INJ) 2 mg Q4HWA PRN IV 05/23/17 16:45 06/06/17 16:44 Morphine Sulfate (MoRPHine SULFATE INJ) 4 mg Q4HWA PRN IV 05/23/17 16:45 06/06/17 16:44 Lisinopril (Zestril Tab) 20 mg DAILY PO 05/25/17 15:00 06/24/17 14:59 05/26/17 10:31 20 MG Sitagliptin Phosphate (Januvia Tab) 50 mg DAILY PO 05/25/17 15:00 06/24/17 14:59 05/26/17 10:30 50 MG Vancomycin HCl 1500 mg/Sodium Chloride 530 ml @ 200 mls/hr Q24H IV 05/26/17 10:00 07/07/17 09:59 05/26/17 10:28 200 MLS/HR Amlodipine Besylate (Norvasc Tab) 5 mg DAILY PO 05/26/17 09:00 06/25/17 08:59 05/26/17 10:29 5 MG Heparin Sodium (Porcine) (Heparin 10 Unit/ ml 5 ml Flush) 5 ml PRN PRN FLUSH 05/26/17 05:45 06/25/17 05:44 05/26/17 10:22 5 ML Objective Vital Signs Date Time Temp Pulse Resp B/P (MAP) Pulse Ox O2 Delivery O2 Flow Rate FiO2 05/26/17 08:10 Room Air 05/26/17 07:01 36.5 70 18 151/84 (106) 94 Room Air 05/25/17 23:40 Room Air 05/25/17 23:00 36.5 70 16 145/79 (101) 94 Room Air 05/25/17 19:24 Room Air 05/25/17 15:38 36.8 72 18 163/80 (107) 92 Room Air Physical Exam General Appearance: WD/WN, no apparent distress Eyes: normal inspection, EOMI, sclerae normal ENT: normal ENT inspection, pharynx normal Neck: supple, no adenopathy, thyroid normal, trachea midline Respiratory/Chest: chest non-tender, lungs clear, normal breath sounds, no respiratory distress Cardiovascular: regular rate, rhythm, no gallop, no murmur Abdomen: normal bowel sounds, non tender, soft, no organomegaly Extremities: normal range of motion, no calf tenderness, normal capillary refill Neurologic/Psychiatric: alert, oriented x 3 Skin: normal color, no rash, + pertinent finding (Surgical site appears clean) Lymphatic: no adenopathy Laboratory Results ----- RUN DATE: 05/26/17 [facility] LAB PAGE 1 RUN TIME: 828 Specimen Inquiry PATIENT: JUAN J DURAN LOC: ETTA U # : [id number] AGE/SX: 71/F ROOM: [facility] REG : 05/22/[address]: Edgar Solorio D.O. : 1945 BED: 2 DIS : STATUS: ADM IN TLOC: SPEC #: [id number] JESÚS: 05/23/17 STATUS: RES REQ #: [id number] RECD: 05/23/17 [facility] DR: Edgar Solorio D.O. SOURCE: JOINT FLSP ENTR: 05/23/[address] [facility] DR: Rahul Hart MD [facility]: KNEE LEFT Edgar Rehman M.D. Mosch, George, M.D. ORDERED: AER/TARHA CULTSMR Procedure Result Verified Site GRAM STAIN Final 05/24/17-902 RESULT MANY WBCs SEEN NO ORGANISMS SEEN OR AER/TARAH CULT Preliminary 05/26/17 Organism 1 ALPHA STREP. NOT ENTEROCOCCUS QUANITY RARE SENS SENSITIVITY TO FOLLOW Last 24 Hours Test 05/25/17 17:02 05/25/17 20:47 05/26/17 05:21 05/26/17 08:07 Bedside Glucose 193 mg/dl 182 mg/dl 173 mg/dl White Blood Count 11.11 K/uL Red Blood Count 3.32 M/uL Hemoglobin 10.5 g/dL Hematocrit 30.9 % Mean Corpuscular Volume 93.1 fL Mean Corpuscular Hemoglobin 31.6 pg Mean Corpuscular Hemoglobin Concent 34.0 g/dl RDW Standard Deviation 43.9 fL RDW Coefficient of Variation 13.1 % Platelet Count 208 K/uL Mean Platelet Volume 10.0 fL Nucleated RBC Absolute Count (auto) 0.02 K/uL Nucleated Red Blood Cells % 0.2 % Sodium Level 139 mmol/L Potassium Level 3.4 mmol/L Chloride Level 107 mmol/L Carbon Dioxide Level 25 mmol/L Anion Gap 7.0 mmol/L Blood Urea Nitrogen 22 mg/dl Creatinine 0.86 mg/dl Est Creatinine Clear Calc Drug Dose 59.1 ml/min Estimated GFR () 77.7 Estimated GFR (Non- 67.0 BUN/Creatinine Ratio 26.0 Random Glucose 162 mg/dl Calcium Level 8.5 mg/dl Test 05/26/17 10:22 Magnesium Level 1.7 mg/dl Assessment and Plan Late infection of left TKA with cultures positive for streptococcal species. Patient changed to IV ceftriaxone 2 g once daily, and will require 6 weeks of IV antibiotics. Will discuss with all involved. Will follow.
[2017-05-26 15:34] VITALS: BP 152/81; PULSE 71; TEMP 36.2; O2SAT 95
[2017-05-26] MEDS ORDERED: CEFTRIAXONE SOD INJ 2,000 MG in DEXTROSE 5% 50ML 50 ML IV SCH (16:00)
[2017-05-26] MEDS ORDERED: CEFT1INJ57 IV (16:03)
[2017-05-26] MEDS ORDERED: ACET-24 PO (16:10)
[2017-05-26] MEDS ORDERED: RXC5 PO ×2 (16:10→16:21)
[2017-05-26 16:50] VITALS: BP 152/81; PULSE 71; TEMP 36.2; O2SAT 95
--- NOTE | 2017-05-26 17:51 | ECHOCARDIOGRAM REPORT ---
*NOTICE TO RECEIVING REPUBLICAN AGENCY This information is strictly Confidential and protected under [place] law. [place] law prohibits you from making any further disclosure of this information unless further disclosure is expressly permitted by the written consent of the person to whom it pertains or is authorized by law. A general authorization for the release of medical or other information is not sufficient for this purpose. Hospital accepts no responsibility if the information is made available to any other person, INCLUDING THE PATIENT. 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 * Performed By: Sydnee Goss RCS * * Reason For Study: ENDOCARDITIS * BSA: 1.8 m2 * -- Conclusions -- * 1. Technically difficult study. * 2. Small LV cavity, moderate concentric LVH. * 2. Low normal LVEF 50-55%. No regional wall motion abnormalities. * 3. Aortic sclerosis. Mild to moderate aortic regurgitation. * 4. Mild mitral regurgitation. Mild PI. * 5. Moderate TR. Moderate pulmonary hypertension. Est PASP 50-55 mmHg. * 6. Severe biatrial enlargement. * 7. Trivial pericardial effusion. * 8. Due to technical limitations cannot exclude vegetations. * 9. No prior stuides for comparison. Procedure Details * A complete two-dimensional transthoracic echocardiogram was performed (2D, M-mode, Doppler and color flow Doppler). Left Ventricle * The left ventricular cavity is small. * There is moderate concentric left ventricular hypertrophy. * Ejection Fraction = 50-55%. * No regional wall motion abnormalities noted. Right Ventricle * The right ventricle is grossly normal size. * The right ventricular systolic function is normal as assessed by tricuspid annular plane systolic excursion (TAPSE) (normal >1.5 cm). Atria * The left atrium is severely dilated. * The right atrium is severely dilated. Mitral Valve * There is moderate mitral annular calcification. * A vegetation on the mitral valve cannot be excluded. * There is no mitral valve stenosis. * There is mild mitral regurgitation. Tricuspid Valve * There is no tricuspid stenosis. * There is moderate tricuspid regurgitation. * Right ventricular systolic pressure is elevated at 50-60mmHg. Aortic Valve * Aortic valve sclerosis mild, without significant aortic valvular stenosis. * Cannot exclude aortic valvular vegetation. * No hemodynamically significant valvular aortic stenosis. * Mild to moderate aortic regurgitation. Pulmonic Valve * The pulmonary valve is inadequately visualized, but the Doppler data is adequate for interpretation. * There is no pulmonic valvular stenosis. * Mild pulmonic valvular regurgitation. Great Vessels * The aortic root and proximal ascending aorta are normal sized. Pericardium/Pleural * Small pericardial effusion. Great Vessels * IVC < 2.1, < 50% change with respiration. Est RA 8 mmHg. MMode 2D Measurements and Calculations Ao root diam 3.0 cm Ao root area 7.0 cm\S\2 ACS 1.6 cm LA dimension 4.8 cm LA/Ao 1.6 LVAd ap4 23.2 cm\S\2 LVLd ap4 6.1 cm EDV(MOD-sp4) 73.9 ml EDV(sp4-el) 75.2 ml LVAs ap4 15.4 cm\S\2 LVLs ap4 5.2 cm ESV(MOD-sp4) 38.0 ml ESV(sp4-el) 38.6 ml EF(MOD-sp4) 48.6 % EF(sp4-el) 48.7 % LVAd ap2 22.6 cm\S\2 LVLd ap2 6.3 cm EDV(MOD-sp2) 64.4 ml EDV(sp2-el) 68.7 ml LVAs ap2 14.6 cm\S\2 LVLs ap2 5.8 cm ESV(MOD-sp2) 30.0 ml ESV(sp2-el) 30.9 ml EF(MOD-sp2) 53.4 % EF(sp2-el) 55.1 % LVLd %diff 3.5 % EDV(MOD-bp) 70.6 ml LVLs %diff 10.9 % ESV(MOD-bp) 35.9 ml EF(MOD-bp) 49.1 % SV(MOD-sp4) 35.9 ml SI(MOD-sp4) 19.4 ml/m\S\2 SV(MOD-sp2) 34.4 ml SI(MOD-sp2) 18.6 ml/m\S\2 SV(MOD-bp) 34.7 ml SI(MOD-bp) 18.7 ml/m\S\2 SV(sp4-el) 36.6 ml SI(sp4-el) 19.8 ml/m\S\2 SV(sp2-el) 37.8 ml SI(sp2-el) 20.5 ml/m\S\2 Doppler Measurements and Calculations MV E max velasquez 150.4 cm/sec MV P1/2t max velasquez 156.5 cm/sec MV P1/2t 71.6 msec MVA(P1/2t) 3.1 cm\S\2 MV dec slope 640.5 cm/sec\S\2 MV dec time 0.19 sec Ao V2 max 178.2 cm/sec Ao max PG 12.7 mmHg Ao max PG (full) 7.8 mmHg AI max velasquez 474.5 cm/sec AI max PG 90.1 mmHg AI dec slope 243.9 cm/sec\S\2 AI P1/2t 569.8 msec LV V1 max PG 4.9 mmHg LV V1 max 110.5 cm/sec MR max velasquez 603.7 cm/sec MR max PG 145.8 mmHg PA V2 max 108.3 cm/sec PA max PG 4.7 mmHg PI max velasquez 230.7 cm/sec PI max PG 21.3 mmHg PI dec slope 220.2 cm/sec\S\2 PI P1/2t 306.9 msec TR max velasquez 323.6 cm/sec
--- NOTE | 2017-05-27 07:53 | Progress Note ---
Subjective Date of Service: late entry for visit on May 26, 2017. Subjective Pt evaluation today including: conversation w/ patient, physical exam, chart review, lab review, review of studies (echo), conversation w/ executive consultant (ortho) , review of inpatient medication list Pain: left knee - very mild PO Intake: normal Voiding: no voiding problems no events overnight no fevers or chills feels good anxious to leave denies any recent dental infection, dental work, skin infections Review of Systems Respiratory: No shortness of breath Cardiac: No chest pain Abdomen: No pain Objective Vital Signs Date Time Temp Pulse Resp B/P (MAP) Pulse Ox O2 Delivery O2 Flow Rate FiO2 05/26/17 16:50 36.2 71 18 95 Room Air 05/26/17 15:40 Room Air 05/26/17 15:34 36.2 71 18 152/81 (104) 95 Room Air 05/26/17 08:10 Room Air 05/26/17 07:01 36.5 70 18 151/84 (106) 94 Room Air Physical Exam General Appearance: no apparent distress ENT: pharynx normal Neck: no JVD Respiratory/Chest: lungs clear, no respiratory distress, no accessory muscle use, + pertinent finding (pacer site, left upper chest - clean, nontender) Cardiovascular: regular rate, rhythm, no gallop, no murmur Abdomen: normal bowel sounds, non tender, soft, no organomegaly Extremities: no pedal edema, + pertinent finding (left knee with mild swelling and mild amount of pain with passive ROM; woundvac in place) Neurologic/Psychiatric: alert, oriented x 3 Laboratory Results Last 24 Hours Test 05/26/17 08:07 05/26/17 10:22 05/26/17 12:13 Bedside Glucose 173 mg/dl 176 mg/dl Magnesium Level 1.7 mg/dl Assessment and Plan 71yo female - 1. alpha strep septicemia - cultures at [facility] positive. source - left knee septic arthritis. cultures show strep is pansensitive. agree w/ change to ceftriaxone 2gm daily. repeat blood cx's to ensure sterility. echo done today - no obvious endocarditis. if cultures are persistently positive I would worry about seeing of her pacemaker. follow cx's. at least 6 weeks of rocephin recommended. 2. septic arthritis, left knee, s/p I/D and wash-out - now with wound vac - defer to ortho 3. T2DM - tighten novolog coverage. resumed mayuvia 4. HTN - controlled. 5. hypokalemia - replace. 6. hypomagnesemia - replace. reasonable to d/c home today if HH and IV abx are in place. will follow blood cx's over the weekend. Continued [facility] stay due to: multiple IV medications needed Discharge planning: home with IV medication
--- NOTE | 2017-05-29 19:22 | DISCHARGE SUMMARY ---
DISCHARGE DIAGNOSIS: Septic left total knee arthroplasty. SECONDARY DIAGNOSES: Atrial fibrillation, coronary artery disease with stent placement, history of ablation procedure, cerebrovascular accident with right-sided weakness that improved, hypothyroidism, hypercholesterolemia, diabetes mellitus type 2. CONSULTS: Dr. Edgar Rehman. COMPLICATIONS: None. PROCEDURES: Left knee incision and drainage with polyethylene bearing change by Dr. Solorio on 05/23/2017. BRIEF HISTORY: As dictated in the history and physical. HOSPITAL SUMMARY: The patient was admitted on the above-noted date with the above-noted septic left TKA. Dr. Rehman was consulted for preoperative medical clearance and postoperative medical coverage. She was then taken to the operating room on 05/13/2017 where the above-noted procedure was performed which she tolerated well. She was put on IV antibiotics and infectious disease consult was placed with Dr. Rahul Hart and cultures were followed during her stay. On her first postoperative day, she was feeling well and had no complaints. Calves were soft and nontender, neurovascularly intact. Dressings clean, dry and intact. Toes were mobile. Vital signs were stable. She was afebrile. Hemoglobin was 11.5 and the patient was started on physical therapy protocol and continued on IV antibiotics. Likely plans would be 6 weeks of IV antibiotics per PICC line and a PICC line was ordered for the patient and she was continued on DVT prophylaxis and pain management. Through the rest of her stay, the patient continued to remain stable, and by 05/26/2017, her calves were soft and nontender, neurovascularly intact. Her Prevena dressing was intact. Toes were mobile. Vital signs were stable and she was afebrile. Hemoglobin was 10.5. Results were showing alpha strep, not enterococcus. The patient was seen by Dr. Hart and plans were for ceftriaxone 2 grams once daily for 6 weeks. Her vancomycin was discontinued and ceftriaxone was ordered and case management arranged for home health IV antibiotics. She was otherwise remaining stable and it was felt she could be discharged to home on 05/26/2017. For further review, please see chart. LABORATORY AND X-RAY DATA: As per chart. DISCHARGE INSTRUCTIONS: The patient was discharged to home in satisfactory condition on 05/26/2017. DIET: Diabetic. ACTIVITY: Weightbearing as tolerated left lower extremity. Follow TK instruction sheets and special care instructions as noted. The patient would be having IV antibiotics for 6 weeks per home health and also to do physical therapy and lab draws that would be needed for her antibiotics that she was taking. FOLLOWUP: Follow up with Dr. Solorio in 2 weeks, the patient to call for appointment, and follow up with Dr. Hart or Dr. Alicea in 10-14 days, the patient to call for appointment. DISCHARGE MEDICATIONS: Acetaminophen 1000 mg p.o. q. 8 hours, ceftriaxone 2 grams IV daily for 42 days, oxycodone 5-10 mg p.o. q. 4 hours p.r.n. Resume home meds as listed including Eliquis 10 mg p.o. b.i.d. For further review, please see medication list noted in the discharge instruction section.
== END 2017-05-26 17:40 | disposition home health service (06) | DRG 467 ==
LOC: C.MSW 19:35
PROVIDERS: ADMIT Orthopaedic Surgery; ATTEND Orthopaedic Surgery
PROC: 0SPD09Z Removal of Liner from Left Knee Joint, Open Approach (ICD-10-PCS; principal; 2017-05-23 14:45)
PROC: 0SRD0JZ Replacement of Left Knee Joint with Synthetic Substitute, Open Approach (ICD-10-PCS; principal; 2017-05-23 14:45)
PROC: 02HV33Z Insertion of Infusion Device into Superior Vena Cava, Percutaneous Approach (ICD-10-PCS; 2017-05-25)
DX: T84.54XA Infection and inflammatory reaction due to internal left knee prosthesis, initial encounter (principal); I69.951 Hemiplegia and hemiparesis following unspecified cerebrovascular disease affecting right dominant side; M00.862 Arthritis due to other bacteria, left knee; Z96.653 Presence of artificial knee joint, bilateral; I48.91 Unspecified atrial fibrillation; I25.10 Atherosclerotic heart disease of native coronary artery without angina pectoris; Y92.019 Unspecified place in single-family (private) house as the place of occurrence of the external cause; Z95.0 Presence of cardiac pacemaker; E03.9 Hypothyroidism, unspecified; E78.5 Hyperlipidemia, unspecified; E11.9 Type 2 diabetes mellitus without complications; E83.42 Hypomagnesemia; I10 Essential (primary) hypertension; E87.6 Hypokalemia; B95.0 Streptococcus, group A, as the cause of diseases classified elsewhere; Y79.2 Prosthetic and other implants, materials and accessory orthopedic devices associated with adverse incidents; Z95.5 Presence of coronary angioplasty implant and graft; Z83.3 Family history of diabetes mellitus